=== PATIENT | male | born 1975 | race American Indian/Alaskan Native ===

== ENCOUNTER 2016-12-27 18:46 | Emergency (ER) | payer OTHER ==
[2016-12-27 20:27] VITALS: BP 126/80
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
[2016-12-27] MEDS ORDERED: Acetaminophen/HYDROcodone 325-10 MG Tab ONE (22:35)
== END 2016-12-27 22:43 | disposition home or self-care (01) ==
LOC: DL.ED 18:46
DX: S29.019A Strain of muscle and tendon of unspecified wall of thorax, initial encounter (principal); I10 Essential (primary) hypertension; F17.210 Nicotine dependence, cigarettes, uncomplicated; G89.29 Other chronic pain; M54.9 Dorsalgia, unspecified; Z79.899 Other long term (current) drug therapy; Z91.011 Allergy to milk products; V89.9XXA Person injured in unspecified vehicle accident, initial encounter
CPT/HCPCS: 72125; 72128; 96372; 99283; A9270; J2360

== ENCOUNTER 2018-09-27 00:59 | Emergency (ER) | payer OTHER ==
[2018-09-27] MEDS ORDERED: Lidocaine 2% Viscous Solution 15 ML Cup PO ONE (02:08)
[2018-09-27] MEDS ORDERED: Acetaminophen/HYDROcodone 325-10 MG Tab PO ONE (02:09)
[2018-09-27 02:11] VITALS: BP 135/86
--- NOTE | 2018-09-27 02:17 | EDM.PDOC ---
ED HPI GENERAL MEDICAL PROBLEM - General Chief Complaint: ENT Problem Stated Complaint: TOOTH FILLING BROKE/NEEXT TO NERVE Time Seen by Provider: 09/27/18 02:10 Source of Information: Reports: Patient History Limitations: Reports: No Limitations - History of Present Illness INITIAL COMMENTS - FREE TEXT/NARRATIVE: This 43 yo male patient reports to the ED with right lower dental pain. The patient reports he had a filling that fell out and has been seen by the dentist , but today he started to have increased pain. The patient reports he is currently on Amoxicillin and has been taking Tylenol with no relief. The patient reports he is supposed to see the dentist again on 10/14/18 to fix his tooth. Onset: Today Duration: Constant, Getting Worse Location: Reports: Face Quality: Reports: Ache, Sharp Severity: Severe Improves with: Reports: None Worsens with: Reports: None Associated Symptoms: Reports: No Other Symptoms - Related Data Allergies Allergy/AdvReac Type Severity Reaction Status Date / Time milk Allergy Nausea and Verified 12/27/16 20:52 Vomiting ceder Allergy Swelling Uncoded 12/27/16 20:52 Home Meds: Home Meds FLUoxetine [PROzac] 10 mg PO DAILY 06/22/14 [History] Magnesium Oxide 250 mg PO BID 06/22/14 [History] Metoprolol Succinate [Toprol Xl] 100 mg PO BID 06/22/14 [History] Mycophenolate Mofetil [Cellcept] 500 mg PO BID 06/22/14 [History] Tacrolimus 1 mg PO BID 06/22/14 [History] predniSONE 5 mg PO DAILY 06/22/14 [History] Lisinopril 10 mg PO DAILY 02/28/15 [History] Past Medical History Cardiovascular History: Reports: Arrhythmia, Hypertension Other Cardiovascular History: enlarged heart Other Genitourinary History: kidney transplant Musculoskeletal History: Reports: Back Pain, Chronic Immunologic History: Reports: Solid Organ Transplant Social & Family History - Family History Family Medical History: Noncontributory - Tobacco Use Smoking Status *Q: Current Every Day Smoker Years of Tobacco use: 30 Packs/Tins Daily: 0.5 Used Tobacco, but Quit: No Second Hand Smoke Exposure: No - Caffeine Use Caffeine Use: Reports: None - Recreational Drug Use Recreational Drug Use: No ED ROS ENT - Review of Systems Review Of Systems: ROS reveals no pertinent complaints other than HPI. ED EXAM, ENT - Physical Exam Exam: See Below Exam Limited By: No Limitations General Appearance: Alert, WD/WN, No Apparent Distress Ears: Normal External Exam, Normal Canal, Hearing Grossly Normal, Normal TMs Nose: Normal Inspection, Normal Mucousa, No Blood Mouth/Throat: Dental Pain (right lower molar) Head: Atraumatic, Normocephalic Neck: Normal Inspection, Supple, Non-Tender, Full Range of Motion Respiratory/Chest: No Respiratory Distress, Lungs Clear, Normal Breath Sounds, No Accessory Muscle Use, Chest Non-Tender Cardiovascular: Normal Peripheral Pulses, Regular Rate, Rhythm, No Edema, No Gallop, No JVD, No Murmur, No Rub GI/Abdominal: Normal Bowel Sounds, Soft, Non-Tender, No Organomegaly, No Distention, No Abnormal Bruit, No Mass (Male) Exam: Deferred Rectal (Males) Exam: Deferred Back: Normal Inspection, Full Range of Motion Extremities: Normal Inspection, Normal Range of Motion, Non-Tender, No Pedal Edema, Normal Capillary Refill Neurological: Alert, Oriented, CN II-XII Intact, Normal Cognition, Normal Gait, Normal Reflexes, No Motor/Sensory Deficits Psychiatric: Normal Affect, Normal Mood Skin: Warm, Dry, Intact, Normal Color, No Rash Lymphatic: No Adenopathy Course - Vital Signs Last Recorded V/S: Last Vital Signs Temp 36.4 C 09/27/18 01:30 Pulse 58 L 09/27/18 01:30 Resp 16 09/27/18 01:30 BP 135/86 09/27/18 01:30 Pulse Ox 99 09/27/18 01:30 - Orders/Labs/Meds Meds: Medications Discontinued Medications Generic Name Dose Route Start Last Admin Trade Name Rodolfoq PRN Reason Stop Dose Admin Hydrocodone Bitart/Acetaminophen 1 tab 09/27/18 02:09 Thayer 325-10 Mg PO 09/27/18 02:10 ONETIME ONE Lidocaine HCl 15 ml 09/27/18 02:08 Xylocaine 2% Viscous PO 09/27/18 02:09 ONETIME ONE Departure - Departure Time of Disposition: 02:16 Disposition: Home, Self-Care 01 Condition: Fair Clinical Impression: Dental trauma Qualifiers: Encounter type: initial encounter Qualified Code(s): S09.93XA - Unspecified injury of face, initial encounter - Discharge Information *PRESCRIPTION DRUG MONITORING PROGRAM REVIEWED*: Not Applicable *COPY OF PRESCRIPTION DRUG MONITORING REPORT IN PATIENT TAMIKO: Not Applicable Instructions: Tooth Injuries, Meqi-[id number] Care Plan Goals: The patient was advised of the examination results during the visit. The patient was given an oral dose of Thayer while in the ED and a dose of viscous lidocaine while in the ED. The patient was discharged with a script for Viscous Lidocaine 2% #100 mL to use 10 mL on a cottonball applied to the area of pain as needed and Thayer (5/325) #4 to take 1 by mouth every 6 hours as needed for pain. If the patient has any additional symptoms or concerns, the patient should either return to the emergency department, visit his primary care facility or see his dentist.
== END 2018-09-27 02:29 | disposition home or self-care (01) ==
LOC: DL.ED 00:59
DX: S09.93XA Unspecified injury of face, initial encounter (principal); I10 Essential (primary) hypertension; F17.210 Nicotine dependence, cigarettes, uncomplicated; Z91.011 Allergy to milk products; Z91.048 Other nonmedicinal substance allergy status; Z79.899 Other long term (current) drug therapy; Z94.0 Kidney transplant status; W19.XXXA Unspecified fall, initial encounter
CPT/HCPCS: 99282; A9270

== ENCOUNTER 2019-08-18 12:19 | Emergency (ER) | payer OTHER, MEDICARE ==
[2019-08-18] MEDS ORDERED: Promethazine 25 MG Tab PO ONE (12:20)
[2019-08-18] MEDS ORDERED: Ondansetron 4 MG Tab.DIS PO ONE (12:20)
[2019-08-18] MEDS ORDERED: Sodium Chloride 0.9% 10 ML Syringe FLUSH PRN (12:31)
[2019-08-18] MEDS ORDERED: Ondansetron 4 MG/2 ML SDV IV ONE ×2 (12:32→13:13)
[2019-08-18] MEDS ORDERED: HYDROmorphone 1 MG/ML Syringe IVPUSH ONE ×2 (12:32→13:25)
[2019-08-18] MEDS ORDERED: Sodium Chloride 0.9% 1,000 ML IV ONE (12:32)
--- NOTE | 2019-08-18 12:39 | EDM.PDOC ---
"ED HPI GENERAL MEDICAL PROBLEM - General Chief Complaint: Gastrointestinal Problem Stated Complaint: VOMITTING,SICK Time Seen by Provider: 08/18/19 12:33 Source of Information: Reports: Patient, Old Records, RN, RN Notes Reviewed History Limitations: Reports: No Limitations - History of Present Illness INITIAL COMMENTS - FREE TEXT/NARRATIVE: Pt presents to ER from home by POV with c/o onset of nausea, vomiting, diarrhea , and upper abdominal pain at 0400HRS this morning. Pt admits to feverish sensation, but has not measured his temperature. He denies bloody or coffee ground emesis. Denies bloody, black, dark, or melanotic stools. Pt reports Hx of CKD s/p transplant. He states that he has been making urine normally. Pt describes the abdominal pain as epigastric. He rates the pain 8-10/10. Nothing alleviates or aggravates his pain. Pt states this has happened in the past and he finds that soaking in a hot bath or hot shower helps relieve the symptoms. Onset: Today, Gradual Onset Date: 08/18/19 Onset Time: 04:00 Duration: Constant, Getting Worse Location: Reports: Abdomen Quality: Reports: Ache Severity: Severe Improves with: Reports: None Worsens with: Reports: None Associated Symptoms: Reports: No Other Symptoms Upper Abdominal Pain Score (Numeric/FACES): 10 - Related Data Allergies Allergy/AdvReac Type Severity Reaction Status Date / Time losartan [From Cozaar] Allergy Cannot Verified 01/04/19 07:55 Remember milk Allergy Nausea and Verified 01/04/19 07:55 Vomiting ceder Allergy Swelling Uncoded 01/04/19 07:55 Home Meds: Home Meds Metoprolol Succinate [Toprol Xl] 100 mg PO BID 06/22/14 [History] Tacrolimus 1 - 1.5 mg PO BID 06/22/14 [History] mycophenolate mofetiL [Cellcept] 750 mg PO BID 06/22/14 [History] predniSONE 5 mg PO DAILY 06/22/14 [History] Acetaminophen 650 mg PO ASDIRECTED PRN 01/01/19 [History] Aspirin [Halfprin] 81 mg PO DAILY 01/01/19 [History] Calcium Carb, Citrate/Vit D3 [Calcium + D3 ER Tablet] 1 tab PO DAILY 01/01/19 [ History] Isosorbide Mononitrate [Imdur] 30 mg PO DAILY 01/01/19 [History] Magnesium 800 mg PO BID 01/01/19 [History] Multivitamin [Multivitamins] 1 tab PO DAILY 01/01/19 [History] Omeprazole 20 mg PO DAILY 01/01/19 [History] amLODIPine Besylate [Amlodipine Besylate] 5 mg PO DAILY 01/01/19 [History] Past Medical History HEENT History: Reports: Impaired Vision Cardiovascular History: Reports: Arrhythmia, Hypertension, Other (See Below) Other Cardiovascular History: enlarged heart Respiratory History: Reports: None Gastrointestinal History: Reports: GERD Genitourinary History: Reports: Other (See Below) Other Genitourinary History: kidney transplant Musculoskeletal History: Reports: Back Pain, Chronic, Gout Neurological History: Reports: None Psychiatric History: Reports: None Endocrine/Metabolic History: Reports: Obesity/BMI 30+, Osteopenia Hematologic History: Reports: None Immunologic History: Reports: None, Solid Organ Transplant Oncologic (Cancer) History: Reports: Bladder, Renal Dermatologic History: Reports: None - Infectious Disease History Infectious Disease History: Reports: None - Past Surgical History Female Surgical History: Social & Family History - Family History Family Medical History: Noncontributory - Tobacco Use Smoking Status *Q: Current Every Day Smoker Tobacco Use Within Last Twelve Months: Cigarettes Years of Tobacco use: 30 Packs/Tins Daily: 1 - Caffeine Use Caffeine Use: Reports: Soda Other Caffeine Use: SODA POP DAILY - Alcohol Use Alcohol Use History: No - Recreational Drug Use Recreational Drug Use: Yes Drug Use in Last 12 Months: Yes Recreational Drug Type: Reports: Marijuana/Hashish Recreational Drug Use Frequency: Weekly - Living Situation & Occupation Living situation: Reports: with Family Occupation: Employed ED ROS GENERAL - Review of Systems Review Of Systems: Comprehensive ROS is negative, except as noted in HPI. ED EXAM, GI/ABD - Physical Exam Exam: See Below Exam Limited By: No Limitations General Appearance: Alert, No Apparent Distress, Active Emesis, Other (Acutely ill but non-toxic appearing) Eyes: Bilateral: Normal Appearance (No scleral icterus) Nose: Normal Inspection, Normal Mucosa, No Blood Throat/Mouth: Normal Inspection, Normal Lips, Normal Oropharynx, Normal Voice, No Airway Compromise Head: Atraumatic, Normocephalic Neck: Normal Inspection, Supple, Non-Tender, Full Range of Motion Respiratory/Chest: No Respiratory Distress, Lungs Clear, Normal Breath Sounds, No Accessory Muscle Use, Chest Non-Tender Cardiovascular: Regular Rate, Rhythm, No Edema, Bradycardia GI/Abdominal Exam: Normal Bowel Sounds, Soft, No Distention, Tender (at epigastric and RUQ regions). No: Guarding, Rigid, Rebound (Male) Exam: Deferred Rectal (Males) Exam: Deferred Back Exam: Normal Inspection. No: CVA Tenderness (L), CVA Tenderness (R) Extremities: Normal Inspection, Normal Range of Motion, Non-Tender, No Pedal Edema, Normal Capillary Refill Neurological: Alert, Oriented, CN II-XII Intact, Normal Cognition, No Motor/ Sensory Deficits Psychiatric: Normal Affect, Normal Mood Skin Exam: Warm, Intact, No Rash, Diaphoretic Course - Vital Signs Last Recorded V/S: Last Vital Signs Temp 95 F L 08/18/19 12:25 Pulse 49 L 08/18/19 13:02 Resp 18 08/18/19 13:02 BP 129/78 08/18/19 13:02 Pulse Ox 100 08/18/19 13:02 - Orders/Labs/Meds Orders: Active Orders 24 hr Category Date Time Status Peripheral IV Care [RC] . DIRECTED Care 08/18/19 12:31 Active Abdomen Pelvis wo Cont [CT] Stat Exams 08/18/19 13:14 Taken CULTURE BLOOD [BC] Stat Lab 08/18/19 12:33 Received CULTURE BLOOD [BC] Stat Lab 08/18/19 12:57 Results CULTURE STOOL [] Stat Lab 08/18/19 12:31 Ordered CULTURE STREP A CONFIRMATION [] Stat Lab 08/18/19 12:41 Results STREP SCRN A RAPID W CULT CONF [] Stat Lab 08/18/19 12:41 Results Sodium Chloride 0.9% [Saline Flush] Med 08/18/19 12:31 Active 10 ml FLUSH ASDIRECTED PRN Blood Culture x2 Reflex Set [OM.PC] Stat Oth 08/18/19 12:30 Ordered Peripheral IV Insertion Adult [OM.PC] Stat Oth 08/18/19 12:30 Ordered Medication Orders Sodium Chloride (Saline Flush) 10 ml FLUSH ASDIRECTED PRN PRN Reason: Keep Vein Open Last Admin: 08/18/19 12:38 Dose: 10 ml Labs: Laboratory Tests 08/18/19 08/18/1919 Range/Units 12:33 12:33 12:57 WBC 21.6 H (5.0-10.0) 10^3/uL RBC 5.47 (4.6-6.2) 10^6/uL Hgb 16.5 D (14.0-18.0) g/dL Hct 46.8 (40.0-54.0) % MCV 85.6 (80-100) fL MCH 30.2 (27.0-34.0) pg MCHC 35.3 H (33.0-35.0) g/dL Plt Count 305 (150-450) 10^3/uL Neut % (Auto) 84.3 H (42.2-75.2) % Lymph % (Auto) 9.2 L (20.5-50.1) % Door % (Auto) 5.6 (2-8) % Eos % (Auto) 0.7 L (1.0-3.0) % Baso % (Auto) 0.2 (0.0-1.0) % Sodium 137 (135-145) mmol/L Potassium 3.6 (3.6-5.0) mmol/L Chloride 104 (101-111) mmol/L Carbon Dioxide 18.0 L (21.0-31.0) mmol/L Anion Gap 18.6 BUN 25 H (7-18) mg/dL Creatinine 1.5 H (0.6-1.3) mg/dL Est Cr Clr Drug Dosing 69.54 mL/min Estimated GFR (MDRD) 50 BUN/Creatinine Ratio 16.66 Glucose 154 H (74-105) mg/dL Lactic Acid 2.0 (0.5-2.2) mmol/L Calcium 9.3 (8.4-10.2) mg/dl Total Bilirubin 1.0 (0.2-1.0) mg/dL AST 21 (10-42) IU/L ALT 18 (10-60) IU/L Alkaline Phosphatase 68 (42-121) IU/L Total Protein 8.8 H (6.7-8.2) g/dl Albumin 4.5 (3.2-5.5) g/dl Globulin 4.3 Albumin/Globulin Ratio 1.05 Amylase 105 H (28-100) U/L Lipase 41 (22-51) U/L Urine Color (YELLOW) Urine Appearance (CLEAR) Urine pH (5.0-9.0) Ur Specific [place] (1.005-1.030) Urine Protein (NEGATIVE) Urine Glucose (UA) (NEGATIVE) Urine Ketones (NEGATIVE) Urine Occult Blood (NEGATIVE) Urine Nitrite (NEGATIVE) Urine Bilirubin (NEGATIVE) Urine Urobilinogen (0.2-1.0) mg/dL Ur Leukocyte Esterase (NEGATIVE) Urine RBC /HPF Urine WBC (0-5/HPF) /HPF Ur Epithelial Cells (NOT SEEN) /HPF Amorphous Sediment (NOT SEEN) /HPF Urine Bacteria (0-FEW/HPF) /HPF Urine Mucus (NOT SEEN) /LPF Urine Opiates Screen (NEGATIVE) Ur Oxycodone Screen (NEGATIVE) Urine Methadone Screen (NEGATIVE) Ur Barbiturates Screen (NEGATIVE) U Tricyclic Antidepress (NEGATIVE) Ur Phencyclidine Scrn (NEGATIVE) Ur Amphetamine Screen (NEGATIVE) U Methamphetamines Scrn (NEGATIVE) Urine MDMA Screen (NEGATIVE) U Benzodiazepines Scrn (NEGATIVE) Urine Cocaine Screen (NEGATIVE) U Marijuana (THC) Screen (NEGATIVE) 08/18/19 08/18/19 Range/Units 14:17 14:17 WBC (5.0-10.0) 10^3/uL RBC (4.6-6.2) 10^6/uL Hgb (14.0-18.0) g/dL Hct (40.0-54.0) % MCV (80-100) fL MCH (27.0-34.0) pg MCHC (33.0-35.0) g/dL Plt Count (150-450) 10^3/uL Neut % (Auto) (42.2-75.2) % Lymph % (Auto) (20.5-50.1) % Door % (Auto) (2-8) % Eos % (Auto) (1.0-3.0) % Baso % (Auto) (0.0-1.0) % Sodium (135-145) mmol/L Potassium (3.6-5.0) mmol/L Chloride (101-111) mmol/L Carbon Dioxide (21.0-31.0) mmol/L Anion Gap BUN (7-18) mg/dL Creatinine (0.6-1.3) mg/dL Est Cr Clr Drug Dosing mL/min Estimated GFR (MDRD) BUN/Creatinine Ratio Glucose (74-105) mg/dL Lactic Acid (0.5-2.2) mmol/L Calcium (8.4-10.2) mg/dl Total Bilirubin (0.2-1.0) mg/dL AST (10-42) IU/L ALT (10-60) IU/L Alkaline Phosphatase (42-121) IU/L Total Protein (6.7-8.2) g/dl Albumin (3.2-5.5) g/dl Globulin Albumin/Globulin Ratio Amylase (28-100) U/L Lipase (22-51) U/L Urine Color Yellow (YELLOW) Urine Appearance Slightly cloudy (CLEAR) Urine pH 7.5 (5.0-9.0) Ur Specific [place] 1.020 (1.005-1.030) Urine Protein 100 H (NEGATIVE) Urine Glucose (UA) Negative (NEGATIVE) Urine Ketones 15 H (NEGATIVE) Urine Occult Blood Negative (NEGATIVE) Urine Nitrite Negative (NEGATIVE) Urine Bilirubin Negative (NEGATIVE) Urine Urobilinogen 0.2 (0.2-1.0) mg/dL Ur Leukocyte Esterase Negative (NEGATIVE) Urine RBC 0-5 /HPF Urine WBC 0-5 (0-5/HPF) /HPF Ur Epithelial Cells Rare (NOT SEEN) /HPF Amorphous Sediment Rare (NOT SEEN) /HPF Urine Bacteria Rare (0-FEW/HPF) /HPF Urine Mucus Moderate H (NOT SEEN) /LPF Urine Opiates Screen Negative (NEGATIVE) Ur Oxycodone Screen Negative (NEGATIVE) Urine Methadone Screen Negative (NEGATIVE) Ur Barbiturates Screen Negative (NEGATIVE) U Tricyclic Antidepress Negative (NEGATIVE) Ur Phencyclidine Scrn Negative (NEGATIVE) Ur Amphetamine Screen Negative (NEGATIVE) U Methamphetamines Scrn Negative (NEGATIVE) Urine MDMA Screen Negative (NEGATIVE) U Benzodiazepines Scrn Negative (NEGATIVE) Urine Cocaine Screen Negative (NEGATIVE) U Marijuana (THC) Screen Positive H (NEGATIVE) Rapid Strep: negative Influenza A/B: negative Meds: Medications Generic Name Dose Route Start Last Admin Trade Name Freq PRN Reason Stop Dose Admin Sodium Chloride 10 ml 08/18/19 12:31 08/18/19 12:38 Saline Flush FLUSH 10 ml ASDIRECTED PRN Administration Keep Vein Open Discontinued Medications Generic Name Dose Route Start Last Admin Trade Name Freq PRN Reason Stop Dose Admin Diphenhydramine HCl 25 mg 08/18/19 13:15 08/18/19 13:21 Benadryl IVPUSH 08/18/19 13:16 25 mg ONETIME ONE Administration Hydromorphone HCl 1 mg 08/18/19 12:32 08/18/19 12:37 Dilaudid IVPUSH 08/18/19 12:33 1 mg ONETIME ONE Administration Hydromorphone HCl 1 mg 08/18/19 13:25 08/18/19 13:31 Dilaudid IVPUSH 08/18/19 13:26 1 mg ONETIME ONE Administration Sodium Chloride 1,000 mls @ 999 mls/hr 08/18/19 12:32 08/18/19 12:37 Normal Saline IV 08/18/19 13:32 999 mls/hr .BOLUS ONE Administration Ondansetron HCl 4 mg 08/18/19 12:32 08/18/19 12:37 Zofran IV 08/18/19 12:33 4 mg ONETIME ONE Administration Ondansetron HCl 4 mg 08/18/19 13:13 08/18/19 13:21 Zofran IV 08/18/19 13:14 4 mg ONETIME ONE Administration Promethazine HCl 50 mg 08/18/19 14:36 08/18/19 14:43 Phenergan IM 08/18/19 14:37 50 mg ONETIME ONE Administration - Radiology Interpretation Free Text/Narrative:: [facility] Final Radiology Report Call: [phone] assistance Online chat: [email or web address] Name: JAMES ACOSTA Age: 44Years M Date: 08/18/2019 SSN: -- : [id number] Study: CT ABDOMEN/PELVIS WO Requesting Physician: TIKA PASCUAL Images: [id number] Addl Studies: Provided Clinical History: Contrast: Without Contrast Medium: Contrast Amount: Contrast Method: Page 1 of 2 PROCEDURE INFORMATION: Exam: CT Abdomen And Pelvis Without Contrast Exam date and time: 08/18/2019 1:48 PM Age: 44 years old Clinical indication: Other: Upper abd pain wbc 26,000-[id number] kidney transplant TECHNIQUE: Imaging protocol: Computed tomography of the abdomen and pelvis without contrast. Radiation optimization: All CT scans at this facility use at least one of these dose optimization techniques: automated exposure control; mA and/or kV adjustment per patient size (includes targeted exams where dose is matched to clinical indication); or iterative reconstruction. COMPARISON: CT Chest Abdomen Pelvis wo Cont 12/10/2016 1:27 PM FINDINGS: Liver: The liver is normal. Gallbladder and bile ducts: The gallbladder is distended. Pancreas: The pancreas is normal. Spleen: The spleen is normal. Adrenals: The adrenal glands are normal. Kidneys and ureters: Status post right nephrectomy. Left kidney is atrophic. Transplanted kidney is within the right pelvis without obstructive uropathy. Stomach and bowel: The stomach is normal. The duodenum is unremarkable. Mild diverticulosis is present in the distal colon. Appendix: A normal appendix is identified. Intraperitoneal space: There is no evidence of free intraperitoneal or pelvic fluid. Vasculature: The aorta is normal. JENY ACOSTAY | Final Radiology Report CONFIDENTIALITY STATEMENT This report is intended only for use by the referring physician, and only in accordance with law. If you received this in error, call [phone]. Page 2 of 2 Lymph nodes: There are multiple nonspecific nonpathologic but prominent lymph nodes in the mesentery. There are no mesenteric lymph nodes of pathologic dimensions. There is no evidence of lymphadenopathy. Bladder: The bladder is normal. Reproductive: The prostate demonstrates mild nonspecific enlargement. The seminal vesicles are normal. Bones/joints: The lumbar spine demonstrates mild degenerative changes at multiple levels. Soft tissues: There are no soft tissue masses or fluid collections. IMPRESSION: 1. Transplanted kidney is within the right pelvis without obstructive uropathy. 2. There are multiple nonspecific nonpathologic but prominent lymph nodes in the mesentery. There are no mesenteric lymph nodes of pathologic dimensions. 3. Mild diverticulosis is present in the distal colon. Thank you for allowing us to participate in the care of your patient. Dictated and Authenticated by: Anthony Thornton DO 08/18/2019 3:09 PM Central Time ([place] & [place]) - Re-Assessments/Exams Free Text/Narrative Re-Assessment/Exam: 08/18/19 15:36 No source of infection by exam or diagnostic results. Elevated WBC may be related to cannabinoid hyperemesis syndrome. Departure - Departure Time of Disposition: 15:37 Disposition: Home, Self-Care 01 Condition: Good Clinical Impression: Acute gastroenteritis - Discharge Information *PRESCRIPTION DRUG MONITORING PROGRAM REVIEWED*: No *COPY OF PRESCRIPTION DRUG MONITORING REPORT IN PATIENT TAMIKO: No Instructions: Viral Gastroenteritis, Adult, [id number], Cannabinoid Hyperemesis Syndrome Forms: ED Department Discharge Additional Instructions: Zofran 4mg Promethazine 25mg *Do not drive while under the influence of this medication. Clear liquid diet until nausea resolves, then advance to soft bland diet as tolerated. Abstain from marijuana use. Follow up in clinic in 2 to 3 days if not completely improved. Sepsis Event Note - Evaluation Sepsis Screening Result: No Definite Risk - Focused Exam Vital Signs: Vital Signs Temp Pulse Resp BP Pulse Ox 08/18/19 13:02 49 L 18 129/78 100 08/18/19 12:25 95 F L 55 L 22 H 120/96 H 100 Date Exam was Performed: 08/18/19 Time Exam was Performed: 15:32 - My Orders Last 24 Hours: My Active Orders 08/18/19 12:30 Blood Culture x2 Reflex Set [OM.PC] Stat Peripheral IV Insertion Adult [OM.PC] Stat 08/18/19 12:31 Peripheral IV Care [RC] . DIRECTED CULTURE STOOL [RM] Stat Sodium Chloride 0.9% [Saline Flush] 10 ml FLUSH ASDIRECTED PRN 08/18/19 12:33 CULTURE BLOOD [BC] Stat 08/18/19 12:41 CULTURE STREP A CONFIRMATION [RM] Stat STREP SCRN A RAPID W CULT CONF [RM] Stat 08/18/19 12:57 CULTURE BLOOD [BC] Stat 08/18/19 13:14 Abdomen Pelvis wo Cont [CT] Stat - Assessment/Plan Last 24 Hours: My Active Orders 08/18/19 12:30 Blood Culture x2 Reflex Set [OM.PC] Stat Peripheral IV Insertion Adult [OM.PC] Stat 08/18/19 12:31 Peripheral IV Care [RC] . DIRECTED CULTURE STOOL [RM] Stat Sodium Chloride 0.9% [Saline Flush] 10 ml FLUSH ASDIRECTED PRN 08/18/19 12:33 CULTURE BLOOD [BC] Stat 08/18/19 12:41 CULTURE STREP A CONFIRMATION [RM] Stat STREP SCRN A RAPID W CULT CONF [RM] Stat 08/18/19 12:57 CULTURE BLOOD [BC] Stat 08/18/19 13:14 Abdomen Pelvis wo Cont [CT] Stat"
[2019-08-18 13:02] VITALS: BP 129/78; PULSE 49
[2019-08-18 13:10] LABS: ANION GAP 18.6
[2019-08-18] MEDS ORDERED: diphenhydrAMINE 50 MG/ML SDV IVPUSH ONE (13:15)
[2019-08-18] MEDS ORDERED: Promethazine 25 MG/ML SDV IM ONE (14:36)
[2019-08-18] MEDS ORDERED: Ondansetron 4 MG Tab.DIS ONE (15:37)
[2019-08-18] MEDS ORDERED: Promethazine 25 MG Tab ONE (15:37)
[2019-08-18] MEDS ORDERED: Haloperidol Lactate 5 MG/ML SDV IM ONE (15:42)
== END 2019-08-18 15:55 | disposition home or self-care (01) ==
LOC: DL.ED 12:19
DX: K52.9 Noninfective gastroenteritis and colitis, unspecified (principal); F17.210 Nicotine dependence, cigarettes, uncomplicated; I10 Essential (primary) hypertension; K21.9 Gastro-esophageal reflux disease without esophagitis; E66.9 Obesity, unspecified; Z79.82 Long term (current) use of aspirin; Z79.899 Other long term (current) drug therapy; Z91.011 Allergy to milk products; Z88.8 Allergy status to other drugs, medicaments and biological substances
CPT/HCPCS: 36415; 74176; 80053; 80305; 81001; 82150; 83605; 83690; 85025; 87040; 87081; 87430; 87804; 96361; 96372; 96374; 96375; 96376; 99283; 99284; A9270; J1170; J1200; J1630; J2405; J2550; J7030

== ENCOUNTER 2020-04-18 12:42 | Emergency (ER) | payer OTHER ==
[2020-04-18] MEDS ORDERED: Sodium Chloride 0.9% 1,000 ML IV ONE (12:53)
[2020-04-18] MEDS ORDERED: Ondansetron 4 MG/2 ML SDV IVPUSH ONE (12:53)
--- NOTE | 2020-04-18 13:01 | EDM.PDOC ---
ED HPI GENERAL MEDICAL PROBLEM - General Stated Complaint: AMBULANCE Time Seen by Provider: 04/18/20 12:50 Source of Information: Reports: Patient History Limitations: Reports: No Limitations - History of Present Illness INITIAL COMMENTS - FREE TEXT/NARRATIVE: This 44 yo male patient reports to the ED with mid lower abdominal pain. EMS reports his abdominal pain started this morning and has been getting worse since time of onset. The patient has had similar symptoms in the past. Middle Abdomen Pain Score (Numeric/FACES): 9 - Related Data Allergies Allergy/AdvReac Type Severity Reaction Status Date / Time losartan [From Cozaar] Allergy Cannot Verified 01/04/19 07:55 Remember milk Allergy Nausea and Verified 01/04/19 07:55 Vomiting ceder Allergy Swelling Uncoded 01/04/19 07:55 Home Meds: Home Meds Metoprolol Succinate [Toprol Xl] 100 mg PO BID 06/22/14 [History] Tacrolimus 1 - 1.5 mg PO BID 06/22/14 [History] mycophenolate mofetiL [Cellcept] 750 mg PO BID 06/22/14 [History] predniSONE 5 mg PO DAILY 06/22/14 [History] Acetaminophen 650 mg PO ASDIRECTED PRN 01/01/19 [History] Aspirin [Halfprin] 81 mg PO DAILY 01/01/19 [History] Calcium Carb, Citrate/Vit D3 [Calcium + D3 ER Tablet] 1 tab PO DAILY 01/01/19 [History] Isosorbide Mononitrate [Imdur] 30 mg PO DAILY 01/01/19 [History] Magnesium 800 mg PO BID 01/01/19 [History] Multivitamin [Multivitamins] 1 tab PO DAILY 01/01/19 [History] Omeprazole 20 mg PO DAILY 01/01/19 [History] amLODIPine Besylate [Amlodipine Besylate] 5 mg PO DAILY 01/01/19 [History] Albuterol [Proair HFA] 1 puff IH Q6H PRN 04/18/20 [History] Sodium Bicarbonate 1,300 mg PO BID 04/18/20 [History] atorvaSTATin Calcium [Atorvastatin Calcium] 10 mg PO BEDTIME 04/18/20 [History] Past Medical History HEENT History: Reports: Impaired Vision Cardiovascular History: Reports: Arrhythmia, Hypertension, Other (See Below) Other Cardiovascular History: enlarged heart Respiratory History: Reports: None Gastrointestinal History: Reports: GERD Genitourinary History: Reports: Other (See Below) Other Genitourinary History: kidney transplant Musculoskeletal History: Reports: Back Pain, Chronic, Gout Neurological History: Reports: None Psychiatric History: Reports: None Endocrine/Metabolic History: Reports: Obesity/BMI 30+, Osteopenia Hematologic History: Reports: None Immunologic History: Reports: None, Solid Organ Transplant Oncologic (Cancer) History: Reports: Bladder, Renal Dermatologic History: Reports: None - Infectious Disease History Infectious Disease History: Reports: None - Past Surgical History Female Surgical History: Social & Family History - Family History Family Medical History: Noncontributory - Caffeine Use Caffeine Use: Reports: Soda Other Caffeine Use: SODA POP DAILY - Living Situation & Occupation Living situation: Reports: with Family Occupation: Employed ED ROS GENERAL - Review of Systems Review Of Systems: Comprehensive ROS is negative, except as noted in HPI. ED EXAM, GI/ABD - Physical Exam Exam: See Below Exam Limited By: No Limitations General Appearance: Alert, WD/WN, Moderate Distress Eyes: Bilateral: Normal Appearance, EOMI Ears: Normal External Exam, Normal Canal, Hearing Grossly Normal, Normal TMs Nose: Normal Inspection, Normal Mucosa, No Blood Throat/Mouth: Normal Inspection, Normal Lips, Normal Teeth, Normal Gums, Normal Oropharynx, Normal Voice, No Airway Compromise Head: Atraumatic, Normocephalic Neck: Normal Inspection, Supple, Non-Tender, Full Range of Motion Respiratory/Chest: No Respiratory Distress, Lungs Clear, Normal Breath Sounds, No Accessory Muscle Use, Chest Non-Tender Cardiovascular: Normal Peripheral Pulses, Regular Rate, Rhythm, No Edema, No Gallop, No JVD, No Murmur, No Rub GI/Abdominal Exam: Normal Bowel Sounds, No Organomegaly, No Distention, No Abnormal Bruit, No Mass, Pelvis Stable, Tender (diffuse) (Male) Exam: Deferred Rectal (Males) Exam: Deferred Back Exam: Normal Inspection, Full Range of Motion, NT Extremities: Normal Inspection, Normal Range of Motion, Non-Tender, Normal Capillary Refill, No Pedal Edema Neurological: Alert, Oriented, CN II-XII Intact, Normal Cognition, Normal Gait, Normal Reflexes, No Motor/Sensory Deficits Psychiatric: Normal Affect, Normal Mood Skin Exam: Warm, Dry, Intact, Normal Color, No Rash Lymphatic: No Adenopathy Course - Vital Signs Last Recorded V/S: Last Vital Signs Temp 36.3 C 04/18/20 13:05 Pulse 42 L 04/18/20 13:05 Resp 9 L 04/18/20 13:05 BP 156/85 H 04/18/20 13:05 Pulse Ox 100 04/18/20 13:05 - Orders/Labs/Meds Orders: Active Orders 24 hr Category Date Time Status EKG Documentation Completion [RC] STAT Care 04/18/20 13:34 Active CULTURE BLOOD [BC] Stat Lab 04/18/20 12:47 Results CULTURE BLOOD [BC] Stat Lab 04/18/20 13:05 Received REFLEX LACTIC ACID YES OR NO [CHEM] Routine Lab 04/18/20 13:47 Received Blood Culture x2 Reflex Set [OM.PC] Stat Oth 04/18/20 13:23 Ordered Labs: Laboratory Tests 04/18/20 04/18/20 04/18/20 Range/Units 13:05 13:05 13:05 WBC 20.5 H (5.0-10.0) 10^3/uL RBC 5.03 (4.6-6.2) 10^6/uL Hgb 15.0 D (14.0-18.0) g/dL Hct 42.7 (40.0-54.0) % MCV 84.9 (80-100) fL MCH 29.8 (27.0-34.0) pg MCHC 35.1 H (33.0-35.0) g/dL Plt Count 285 (150-450) 10^3/uL Neut % (Auto) 76.8 H (42.2-75.2) % Lymph % (Auto) 15.0 L (20.5-50.1) % Rankin % (Auto) 7.0 (2-8) % Eos % (Auto) 0.8 L (1.0-3.0) % Baso % (Auto) 0.4 (0.0-1.0) % Sodium 143 (136-145) mmol/L Potassium 3.6 (3.5-5.1) mmol/L Chloride 106 (98-107) mmol/L Carbon Dioxide 21 (21-32) mmol/L Anion Gap 19.6 H (7-13) mEq/L BUN 22 H (7-18) mg/dL Creatinine 2.01 H (0.70-1.30) mg/dL Est Cr Clr Drug Dosing 50.40 mL/min Estimated GFR (MDRD) 36 BUN/Creatinine Ratio 10.9 (No establ ref range) Glucose 169 H (74-99) mg/dL Lactic Acid (0.4-2.0) mmol/L Calcium 9.3 (8.5-10.1) mg/dL Magnesium 1.9 (1.8-2.4) mg/dL Total Bilirubin 0.6 (0.2-1.0) mg/dL AST 14 L (15-37) U/L ALT 22 (16-63) U/L Alkaline Phosphatase 83 (46-116) U/L Ammonia 11 (11-32) umol/L Troponin I (0.000-0.056) ng/mL Total Protein 8.4 H (6.4-8.2) g/dL Albumin 4.1 (3.4-5.0) g/dL Globulin 4.3 Albumin/Globulin Ratio 1.0 Amylase 63 (25-115) U/L Lipase 123 (73-393) U/L Urine Color (YELLOW) Urine Appearance (CLEAR) Urine pH (5.0-9.0) Ur Specific [place] (1.005-1.030) Urine Protein (NEGATIVE) Urine Glucose (UA) (NEGATIVE) Urine Ketones (NEGATIVE) Urine Occult Blood (NEGATIVE) Urine Nitrite (NEGATIVE) Urine Bilirubin (NEGATIVE) Urine Urobilinogen (0.2-1.0) mg/dL Ur Leukocyte Esterase (NEGATIVE) Urine RBC /HPF Urine WBC (0-5/HPF) /HPF Ur Epithelial Cells (NOT SEEN) /HPF Amorphous Sediment (NOT SEEN) /HPF Urine Bacteria (0-FEW/HPF) /HPF Urine Mucus (NOT SEEN) /LPF Salicylates (2.8-20(Therapeutic)) mg/dL Urine Opiates Screen (NEGATIVE) Ur Oxycodone Screen (NEGATIVE) Urine Methadone Screen (NEGATIVE) Acetaminophen 0 L (10-30 (Therapeutic)) ug/mL Ur Barbiturates Screen (NEGATIVE) U Tricyclic Antidepress (NEGATIVE) Ur Phencyclidine Scrn (NEGATIVE) Ur Amphetamine Screen (NEGATIVE) U Methamphetamines Scrn (NEGATIVE) Urine MDMA Screen (NEGATIVE) U Benzodiazepines Scrn (NEGATIVE) Urine Cocaine Screen (NEGATIVE) U Marijuana (THC) Screen (NEGATIVE) Ethyl Alcohol < 3 (0) mg/dL COVID-19 (NEFTALY) (NEGATIVE) 04/18/20 04/18/20 04/18/20 Range/Units 13:05 13:05 13:05 WBC (5.0-10.0) 10^3/uL RBC (4.6-6.2) 10^6/uL Hgb (14.0-18.0) g/dL Hct (40.0-54.0) % MCV (80-100) fL MCH (27.0-34.0) pg MCHC (33.0-35.0) g/dL Plt Count (150-450) 10^3/uL Neut % (Auto) (42.2-75.2) % Lymph % (Auto) (20.5-50.1) % Rankin % (Auto) (2-8) % Eos % (Auto) (1.0-3.0) % Baso % (Auto) (0.0-1.0) % Sodium (136-145) mmol/L Potassium (3.5-5.1) mmol/L Chloride (98-107) mmol/L Carbon Dioxide (21-32) mmol/L Anion Gap (7-13) mEq/L BUN (7-18) mg/dL Creatinine (0.70-1.30) mg/dL Est Cr Clr Drug Dosing mL/min Estimated GFR (MDRD) BUN/Creatinine Ratio (No establ ref range) Glucose (74-99) mg/dL Lactic Acid 2.5 H* (0.4-2.0) mmol/L Calcium (8.5-10.1) mg/dL Magnesium (1.8-2.4) mg/dL Total Bilirubin (0.2-1.0) mg/dL AST (15-37) U/L ALT (16-63) U/L Alkaline Phosphatase (46-116) U/L Ammonia (11-32) umol/L Troponin I (0.000-0.056) ng/mL Total Protein (6.4-8.2) g/dL Albumin (3.4-5.0) g/dL Globulin Albumin/Globulin Ratio Amylase (25-115) U/L Lipase (73-393) U/L Urine Color (YELLOW) Urine Appearance (CLEAR) Urine pH (5.0-9.0) Ur Specific [place] (1.005-1.030) Urine Protein (NEGATIVE) Urine Glucose (UA) (NEGATIVE) Urine Ketones (NEGATIVE) Urine Occult Blood (NEGATIVE) Urine Nitrite (NEGATIVE) Urine Bilirubin (NEGATIVE) Urine Urobilinogen (0.2-1.0) mg/dL Ur Leukocyte Esterase (NEGATIVE) Urine RBC /HPF Urine WBC (0-5/HPF) /HPF Ur Epithelial Cells (NOT SEEN) /HPF Amorphous Sediment (NOT SEEN) /HPF Urine Bacteria (0-FEW/HPF) /HPF Urine Mucus (NOT SEEN) /LPF Salicylates 7.1 (2.8-20(Therapeutic)) mg/dL Urine Opiates Screen (NEGATIVE) Ur Oxycodone Screen (NEGATIVE) Urine Methadone Screen (NEGATIVE) Acetaminophen (10-30 (Therapeutic)) ug/mL Ur Barbiturates Screen (NEGATIVE) U Tricyclic Antidepress (NEGATIVE) Ur Phencyclidine Scrn (NEGATIVE) Ur Amphetamine Screen (NEGATIVE) U Methamphetamines Scrn (NEGATIVE) Urine MDMA Screen (NEGATIVE) U Benzodiazepines Scrn (NEGATIVE) Urine Cocaine Screen (NEGATIVE) U Marijuana (THC) Screen (NEGATIVE) Ethyl Alcohol (0) mg/dL COVID-19 (NEFTALY) Negative (NEGATIVE) 04/18/20 04/18/20 04/18/20 Range/Units 13:05 14:56 14:56 WBC (5.0-10.0) 10^3/uL RBC (4.6-6.2) 10^6/uL Hgb (14.0-18.0) g/dL Hct (40.0-54.0) % MCV (80-100) fL MCH (27.0-34.0) pg MCHC (33.0-35.0) g/dL Plt Count (150-450) 10^3/uL Neut % (Auto) (42.2-75.2) % Lymph % (Auto) (20.5-50.1) % Rankin % (Auto) (2-8) % Eos % (Auto) (1.0-3.0) % Baso % (Auto) (0.0-1.0) % Sodium (136-145) mmol/L Potassium (3.5-5.1) mmol/L Chloride (98-107) mmol/L Carbon Dioxide (21-32) mmol/L Anion Gap (7-13) mEq/L BUN (7-18) mg/dL Creatinine (0.70-1.30) mg/dL Est Cr Clr Drug Dosing mL/min Estimated GFR (MDRD) BUN/Creatinine Ratio (No establ ref range) Glucose (74-99) mg/dL Lactic Acid (0.4-2.0) mmol/L Calcium (8.5-10.1) mg/dL Magnesium (1.8-2.4) mg/dL Total Bilirubin (0.2-1.0) mg/dL AST (15-37) U/L ALT (16-63) U/L Alkaline Phosphatase (46-116) U/L Ammonia (11-32) umol/L Troponin I < 0.017 (0.000-0.056) ng/mL Total Protein (6.4-8.2) g/dL Albumin (3.4-5.0) g/dL Globulin Albumin/Globulin Ratio Amylase (25-115) U/L Lipase (73-393) U/L Urine Color Yellow (YELLOW) Urine Appearance Clear (CLEAR) Urine pH 8.0 (5.0-9.0) Ur Specific [place] 1.020 (1.005-1.030) Urine Protein 100 H (NEGATIVE) Urine Glucose (UA) Negative (NEGATIVE) Urine Ketones 15 H (NEGATIVE) Urine Occult Blood Negative (NEGATIVE) Urine Nitrite Negative (NEGATIVE) Urine Bilirubin Negative (NEGATIVE) Urine Urobilinogen 0.2 (0.2-1.0) mg/dL Ur Leukocyte Esterase Negative (NEGATIVE) Urine RBC 5-10 H /HPF Urine WBC 0-5 (0-5/HPF) /HPF Ur Epithelial Cells Rare (NOT SEEN) /HPF Amorphous Sediment Occasional (NOT SEEN) /HPF Urine Bacteria Rare (0-FEW/HPF) /HPF Urine Mucus Rare (NOT SEEN) /LPF Salicylates (2.8-20(Therapeutic)) mg/dL Urine Opiates Screen Negative (NEGATIVE) Ur Oxycodone Screen Negative (NEGATIVE) Urine Methadone Screen Negative (NEGATIVE) Acetaminophen (10-30 (Therapeutic)) ug/mL Ur Barbiturates Screen Negative (NEGATIVE) U Tricyclic Antidepress Negative (NEGATIVE) Ur Phencyclidine Scrn Negative (NEGATIVE) Ur Amphetamine Screen Negative (NEGATIVE) U Methamphetamines Scrn Negative (NEGATIVE) Urine MDMA Screen Negative (NEGATIVE) U Benzodiazepines Scrn Negative (NEGATIVE) Urine Cocaine Screen Negative (NEGATIVE) U Marijuana (THC) Screen Positive H (NEGATIVE) Ethyl Alcohol (0) mg/dL COVID-19 (NEFTALY) (NEGATIVE) Meds: Medications Discontinued Medications Generic Name Dose Route Start Last Admin Trade Name Freq PRN Reason Stop Dose Admin Hydromorphone HCl 0.5 mg 04/18/20 13:50 04/18/20 13:59 Dilaudid IVPUSH 04/18/20 13:51 0.5 mg ONETIME ONE Administration Sodium Chloride 1,000 mls @ 999 mls/hr 04/18/20 12:53 04/18/20 13:18 Normal Saline IV 04/18/20 13:53 999 mls/hr .BOLUS ONE Administration Metoclopramide HCl 10 mg 04/18/20 13:45 04/18/20 13:59 Reglan IVPUSH 04/18/20 13:46 10 mg ONETIME ONE Administration Ondansetron HCl 4 mg 04/18/20 12:53 04/18/20 13:18 Zofran IVPUSH 04/18/20 12:54 4 mg ONETIME ONE Administration Promethazine HCl 25 mg 04/18/20 15:29 04/18/20 15:38 Phenergan IM 04/18/20 15:30 25 mg ONETIME ONE Administration Departure - Departure Time of Disposition: 16:01 Disposition: Home, Self-Care 01 Condition: Fair Clinical Impression: Acute gastroenteritis, Cannabinoid hyperemesis syndrome - Discharge Information *PRESCRIPTION DRUG MONITORING PROGRAM REVIEWED*: Not Applicable *COPY OF PRESCRIPTION DRUG MONITORING REPORT IN PATIENT TAMIKO: Not Applicable Instructions: Viral Gastroenteritis, Adult, [id number], Nausea and Vomiting, Adult, [id number] Forms: ED Department Discharge Care Plan Goals: The patient was advised of the examination and lab results during the visit. The patient was given IV fluids, IV Zofran, IV Reglan and IM Phenergan while in the ED. The patient was discharged with a script for Zofran (4 mg) #20 to take 1 by mouth every 6 hours as needed for nausea. The patient was encouraged to stick to a BRAT diet (bananas, rice, applesauce and toast) with small frequent sips of fluid. If the patient has any additional symptoms or concerns, the patient should either return to the emergency department or follow-up with his primary care facility. Sepsis Event Note (ED) - Focused Exam Vital Signs: Vital Signs Temp Pulse Resp BP Pulse Ox 04/18/20 13:05 36.3 C 42 L 9 L 156/85 H 100 - My Orders Last 24 Hours: My Active Orders 04/18/20 12:47 CULTURE BLOOD [BC] Stat 04/18/20 13:05 CULTURE BLOOD [BC] Stat 04/18/20 13:23 Blood Culture x2 Reflex Set [OM.PC] Stat 04/18/20 13:34 EKG Documentation Completion [RC] STAT 04/18/20 13:47 REFLEX LACTIC ACID YES OR NO [CHEM] Routine - Assessment/Plan Last 24 Hours: My Active Orders 04/18/20 12:47 CULTURE BLOOD [BC] Stat 04/18/20 13:05 CULTURE BLOOD [BC] Stat 04/18/20 13:23 Blood Culture x2 Reflex Set [OM.PC] Stat 04/18/20 13:34 EKG Documentation Completion [RC] STAT 04/18/20 13:47 REFLEX LACTIC ACID YES OR NO [CHEM] Routine
[2020-04-18 13:24] VITALS: BP 156/85; PULSE 42
[2020-04-18 13:39] LABS: ANION GAP 19.6 mEq/L (7-13); CHLORIDE,CL 106 mmol/L (98-107); SODIUM,NA 143 mmol/L (136-145)
[2020-04-18 13:40] LABS: ACETAMINOPHEN 0 ug/mL (10-30 (Therapeutic))
[2020-04-18] MEDS ORDERED: Metoclopramide 10 MG/2 ML SDV IVPUSH ONE (13:45)
[2020-04-18] MEDS ORDERED: HYDROmorphone 0.5 MG/0.5 ML Syringe IVPUSH ONE (13:50)
--- NOTE | 2020-04-18 14:37 | CT ---
EXAMINATION: Abdomen Pelvis wo Cont SEX: Male AGE: 44 years CLINICAL HISTORY: 44-year-old hypertensive 230 pound male with renal transplant, WBC greater than 20,000 and ABDOMINAL PAIN. "Diverticulosis distal colon and lymph nodes in the mesentery" reported CT 18 August 2019. Rule out appendicitis or other intraperitoneal abnormality. Scan technique: Volume acquisition of data emergency unenhanced CT scan of the abdomen and pelvis obtained with the patient lying supine on the Siemens multislice scanner [place], [place]. All data archived in the PACS system for storage, reformatting axial/sagittal/coronal planes and study. Interpretation: 1. 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 2. No sign of transplant mass lesion, nephrolithiasis or obstructive uropathy (pyelocaliectasis/ureterectasis). Vascular calcifications. No aortoiliac aneurysm. 3. Numerous diverticula sigmoid colon LLQ. No associated inflammatory "dirty" peritoneal fat, pericolonic inflammatory mass (abscess), mechanical bowel obstruction, ascites or free intraperitoneal air. 4. Gallbladder, unenhanced liver, stomach, spleen, pancreas and adrenal glands anatomically correct. 5. No pelvic or abdominal mass lesion. No mesenteric or retroperitoneal lymphadenopathy. Normal appendix RLQ. Terminal ileum unremarkable. 6. No ventral wall or inguinal hernias. 7. Normal cardiac silhouette. Lung bases clear. No pericardial or pleural effusions. CONCLUSION: Renal transplant, RLQ. Sigmoid diverticulosis. Normal appendix.
[2020-04-18] MEDS ORDERED: Promethazine 25 MG/ML SDV IM ONE (15:29)
== END 2020-04-18 16:08 | disposition home or self-care (01) ==
LOC: DL.ED 12:42
DX: K52.9 Noninfective gastroenteritis and colitis, unspecified (principal); R11.10 Vomiting, unspecified; F12.90 Cannabis use, unspecified, uncomplicated; I10 Essential (primary) hypertension; K21.9 Gastro-esophageal reflux disease without esophagitis; M10.9 Gout, unspecified; E66.9 Obesity, unspecified; Z68.30 Body mass index [BMI] 30.0-30.9, adult; Z88.8 Allergy status to other drugs, medicaments and biological substances; Z91.011 Allergy to milk products; Z79.899 Other long term (current) drug therapy; Z20.828 Contact with and (suspected) exposure to other viral communicable diseases; Z79.82 Long term (current) use of aspirin
CPT/HCPCS: 36415; 74176; 80053; 80305; 80307; 81001; 82140; 82150; 83605; 83690; 83735; 84484; 85025; 87040; 87635; 93005; 96361; 96372; 96374; 96375; 99284; J1170; J2405; J2550; J2765; J7030; U0002

== ENCOUNTER 2021-01-17 13:23 | Emergency (ER) | payer MEDICAID, OTHER ==
[2021-01-17] MEDS ORDERED: Sodium Chloride 0.9% 1,000 ML IV ONE ×2 (13:27→14:23)
[2021-01-17] MEDS ORDERED: Promethazine 25 MG/ML SDV IM ONE (13:28)
[2021-01-17 13:35] VITALS: BP 128/74; PULSE 50
[2021-01-17 14:06] LABS: ANION GAP 18.6 mEq/L (7-13)
[2021-01-17] MEDS ORDERED: Iopamidol 612 MG/ML 100 ML Bottle IVPUSH ONE (14:25)
[2021-01-17] MEDS ORDERED: HYDROmorphone 1 MG/ML Syringe IVPUSH ONE (14:30)
--- NOTE | 2021-01-17 14:36 | EDM.PDOC ---
ED HPI GENERAL MEDICAL PROBLEM - General Chief Complaint: Abdominal Pain Stated Complaint: vommiting,diarrhea,abdominal pain Time Seen by Provider: 01/17/21 14:15 Source of Information: Reports: Patient History Limitations: Reports: No Limitations - History of Present Illness INITIAL COMMENTS - FREE TEXT/NARRATIVE: This 45 yo male patient reports to the ED with diffuse abdominal pain and nausea/vomiting. The patient reports his symptoms started this morning and believes it has something to do with tomatoes. The patient has taken a "stomach" pill with no changes in symptoms. The patient has a history of hypertension and kidney transplant. The patient has been seen in this ED for similar symptoms. Onset: Today Duration: Constant, Getting Worse Location: Reports: Abdomen Quality: Reports: Ache, Stabbing Severity: Severe Improves with: Reports: None Worsens with: Reports: None Context: Reports: Other Associated Symptoms: Reports: Nausea/Vomiting Abdominal Pain Score (Numeric/FACES): 7 - Related Data Allergies Allergy/AdvReac Type Severity Reaction Status Date / Time losartan [From Cozaar] Allergy Cannot Verified 01/17/21 13:31 Remember milk Allergy Nausea and Verified 01/17/21 13:31 Vomiting ceder Allergy Swelling Uncoded 01/17/21 13:31 Home Meds: Home Meds Metoprolol Succinate [Toprol Xl] 100 mg PO BID 06/22/14 [History] Tacrolimus 1 - 1.5 mg PO BID 06/22/14 [History] mycophenolate mofetiL [Cellcept] 750 mg PO BID 06/22/14 [History] predniSONE 5 mg PO DAILY 06/22/14 [History] Acetaminophen 650 mg PO ASDIRECTED PRN 01/01/19 [History] Aspirin [Halfprin] 81 mg PO DAILY 01/01/19 [History] Calcium Carb, Citrate/Vit D3 [Calcium + D3 ER Tablet] 1 tab PO DAILY 01/01/19 [History] Isosorbide Mononitrate [Imdur] 30 mg PO DAILY 01/01/19 [History] Magnesium 800 mg PO BID 01/01/19 [History] Multivitamin [Multivitamins] 1 tab PO DAILY 01/01/19 [History] Omeprazole 20 mg PO DAILY 01/01/19 [History] amLODIPine Besylate [Amlodipine Besylate] 5 mg PO DAILY 01/01/19 [History] Albuterol [Proair HFA] 1 puff IH Q6H PRN 04/18/20 [History] Sodium Bicarbonate 1,300 mg PO BID 04/18/20 [History] atorvaSTATin Calcium [Atorvastatin Calcium] 10 mg PO BEDTIME 04/18/20 [History] Past Medical History HEENT History: Reports: Impaired Vision Cardiovascular History: Reports: Arrhythmia, Hypertension, Other (See Below) Other Cardiovascular History: enlarged heart Respiratory History: Reports: None Gastrointestinal History: Reports: GERD Genitourinary History: Reports: Other (See Below) Other Genitourinary History: kidney transplant Musculoskeletal History: Reports: Back Pain, Chronic, Gout Neurological History: Reports: None Psychiatric History: Reports: Addiction Endocrine/Metabolic History: Reports: Obesity/BMI 30+, Osteopenia Hematologic History: Reports: None Immunologic History: Reports: Solid Organ Transplant Oncologic (Cancer) History: Reports: Bladder, Renal Dermatologic History: Reports: None - Infectious Disease History Infectious Disease History: Reports: None - Past Surgical History Head Surgeries/Procedures: Reports: None HEENT Surgical History: Reports: None Cardiovascular Surgical History: Reports: None Respiratory Surgical History: Reports: None GI Surgical History: Reports: None Male Surgical History: Reports: Nephrectomy Endocrine Surgical History: Reports: None Neurological Surgical History: Reports: None Musculoskeletal Surgical History: Reports: None Oncologic Surgical History: Reports: None Dermatological Surgical History: Reports: None Social & Family History - Family History Family Medical History: No Pertinent Family History - Caffeine Use Caffeine Use: Reports: Soda Other Caffeine Use: SODA POP DAILY - Recreational Drug Use Recreational Drug Use: Yes Drug Use in Last 12 Months: Yes Recreational Drug Type: Reports: Marijuana/Hashish Recreational Drug Use Frequency: Daily - Living Situation & Occupation Living situation: Reports: with Family Occupation: Employed ED ROS GENERAL - Review of Systems Review Of Systems: Comprehensive ROS is negative, except as noted in HPI. ED EXAM, GI/ABD - Physical Exam Exam: See Below Exam Limited By: No Limitations General Appearance: Alert, WD/WN, Anxious, Moderate Distress, Obese Eyes: Bilateral: Normal Appearance, EOMI Ears: Normal External Exam, Normal Canal, Hearing Grossly Normal, Normal TMs Nose: Normal Inspection, Normal Mucosa, No Blood Throat/Mouth: Normal Inspection, Normal Lips, Normal Teeth, Normal Gums, Normal Oropharynx, Normal Voice, No Airway Compromise Head: Atraumatic, Normocephalic Neck: Normal Inspection, Supple, Non-Tender, Full Range of Motion Respiratory/Chest: No Respiratory Distress, Lungs Clear, Normal Breath Sounds, No Accessory Muscle Use, Chest Non-Tender Cardiovascular: Normal Peripheral Pulses, Regular Rate, Rhythm, No Edema, No Gallop, No JVD, No Murmur, No Rub GI/Abdominal Exam: Normal Bowel Sounds, No Mass, Pelvis Stable, Distended, Guarding, Tender (diffuse upper abdominal tenderness and pain) (Male) Exam: Deferred Rectal (Males) Exam: Deferred Back Exam: Paraspinal Tenderness (diffuse lower back), Vertebral Tenderness (diffuse lower back) Extremities: Normal Inspection, Normal Range of Motion, Non-Tender, Normal Capillary Refill, No Pedal Edema Neurological: Alert, Oriented, CN II-XII Intact, Normal Cognition, Normal Gait, Normal Reflexes, No Motor/Sensory Deficits Psychiatric: Normal Affect, Normal Mood Skin Exam: Warm, Dry, Intact, Normal Color, No Rash Lymphatic: No Adenopathy Course - Vital Signs Last Recorded V/S: Last Vital Signs Temp 97.0 F 01/17/21 13:32 Pulse 50 L 01/17/21 13:32 Resp 20 01/17/21 13:32 BP 128/74 01/17/21 13:32 Pulse Ox 100 01/17/21 13:32 - Orders/Labs/Meds Orders: Active Orders 24 hr Category Date Time Status CULTURE BLOOD [BC] Stat Lab 01/17/21 13:41 Received REFLEX LACTIC ACID YES OR NO [CHEM] Routine Lab 01/17/21 14:14 Received Labs: Laboratory Tests 01/17/21 01/17/21 01/17/21 Range/Units 13:41 13:41 13:41 WBC 18.1 H (5.0-10.0) 10^3/uL RBC 5.12 (4.6-6.2) 10^6/uL Hgb 15.2 (14.0-18.0) g/dL Hct 44.2 (40.0-54.0) % MCV 86.3 (80-100) fL MCH 29.7 (27.0-34.0) pg MCHC 34.4 (33.0-35.0) g/dL Plt Count 278 (150-450) 10^3/uL Neut % (Auto) 87.4 H (42.2-75.2) % Lymph % (Auto) 6.0 L (20.5-50.1) % Gilliam % (Auto) 6.0 (2-8) % Eos % (Auto) 0.4 L (1.0-3.0) % Baso % (Auto) 0.2 (0.0-1.0) % Sodium 143 (136-145) mmol/L Potassium 3.6 (3.5-5.1) mmol/L Chloride 106 (98-107) mmol/L Carbon Dioxide 22 (21-32) mmol/L Anion Gap 18.6 H (7-13) mEq/L BUN 21 H (7-18) mg/dL Creatinine 1.61 H (0.70-1.30) mg/dL Est Cr Clr Drug Dosing 62.26 mL/min Estimated GFR (MDRD) 46 BUN/Creatinine Ratio 13.0 (No establ ref range) Glucose 183 H (70-99) mg/dL Lactic Acid 3.2 H* (0.4-2.0) mmol/L Calcium 8.8 (8.5-10.1) mg/dL Total Bilirubin 0.8 (0.2-1.0) mg/dL AST 13 L (15-37) U/L ALT 25 (16-63) U/L Alkaline Phosphatase 82 (46-116) U/L Total Protein 7.5 (6.4-8.2) g/dL Albumin 3.6 (3.4-5.0) g/dL Globulin 3.9 Albumin/Globulin Ratio 0.9 Amylase (25-115) U/L Lipase (73-393) U/L Urine Color (YELLOW) Urine Appearance (CLEAR) Urine pH (5.0-9.0) Ur Specific [place] (1.005-1.030) Urine Protein (NEGATIVE) Urine Glucose (UA) (NEGATIVE) Urine Ketones (NEGATIVE) Urine Occult Blood (NEGATIVE) Urine Nitrite (NEGATIVE) Urine Bilirubin (NEGATIVE) Urine Urobilinogen (0.2-1.0) mg/dL Ur Leukocyte Esterase (NEGATIVE) Urine RBC /HPF Urine WBC (0-5/HPF) /HPF Urine Mucus (NOT SEEN) /LPF Urine Opiates Screen (NEGATIVE) Ur Oxycodone Screen (NEGATIVE) Urine Methadone Screen (NEGATIVE) Ur Barbiturates Screen (NEGATIVE) U Tricyclic Antidepress (NEGATIVE) Ur Phencyclidine Scrn (NEGATIVE) Ur Amphetamine Screen (NEGATIVE) U Methamphetamines Scrn (NEGATIVE) Urine MDMA Screen (NEGATIVE) U Benzodiazepines Scrn (NEGATIVE) Urine Cocaine Screen (NEGATIVE) U Marijuana (THC) Screen (NEGATIVE) 01/17/21 01/17/21 01/17/21 Range/Units 13:41 14:30 14:30 WBC (5.0-10.0) 10^3/uL RBC (4.6-6.2) 10^6/uL Hgb (14.0-18.0) g/dL Hct (40.0-54.0) % MCV (80-100) fL MCH (27.0-34.0) pg MCHC (33.0-35.0) g/dL Plt Count (150-450) 10^3/uL Neut % (Auto) (42.2-75.2) % Lymph % (Auto) (20.5-50.1) % Gilliam % (Auto) (2-8) % Eos % (Auto) (1.0-3.0) % Baso % (Auto) (0.0-1.0) % Sodium (136-145) mmol/L Potassium (3.5-5.1) mmol/L Chloride (98-107) mmol/L Carbon Dioxide (21-32) mmol/L Anion Gap (7-13) mEq/L BUN (7-18) mg/dL Creatinine (0.70-1.30) mg/dL Est Cr Clr Drug Dosing mL/min Estimated GFR (MDRD) BUN/Creatinine Ratio (No establ ref range) Glucose (70-99) mg/dL Lactic Acid (0.4-2.0) mmol/L Calcium (8.5-10.1) mg/dL Total Bilirubin (0.2-1.0) mg/dL AST (15-37) U/L ALT (16-63) U/L Alkaline Phosphatase (46-116) U/L Total Protein (6.4-8.2) g/dL Albumin (3.4-5.0) g/dL Globulin Albumin/Globulin Ratio Amylase 74 (25-115) U/L Lipase 108 (73-393) U/L Urine Color Dark yellow (YELLOW) Urine Appearance Clear (CLEAR) Urine pH 7.5 (5.0-9.0) Ur Specific [place] 1.020 (1.005-1.030) Urine Protein 100 H (NEGATIVE) Urine Glucose (UA) Negative (NEGATIVE) Urine Ketones 15 H (NEGATIVE) Urine Occult Blood Negative (NEGATIVE) Urine Nitrite Negative (NEGATIVE) Urine Bilirubin Negative (NEGATIVE) Urine Urobilinogen 0.2 (0.2-1.0) mg/dL Ur Leukocyte Esterase Negative (NEGATIVE) Urine RBC 0-5 /HPF Urine WBC 0-5 (0-5/HPF) /HPF Urine Mucus Few H (NOT SEEN) /LPF Urine Opiates Screen Negative (NEGATIVE) Ur Oxycodone Screen Negative (NEGATIVE) Urine Methadone Screen Negative (NEGATIVE) Ur Barbiturates Screen Negative (NEGATIVE) U Tricyclic Antidepress Negative (NEGATIVE) Ur Phencyclidine Scrn Negative (NEGATIVE) Ur Amphetamine Screen Negative (NEGATIVE) U Methamphetamines Scrn Negative (NEGATIVE) Urine MDMA Screen Negative (NEGATIVE) U Benzodiazepines Scrn Negative (NEGATIVE) Urine Cocaine Screen Negative (NEGATIVE) U Marijuana (THC) Screen Positive H (NEGATIVE) Meds: Medications Discontinued Medications Generic Name Dose Route Start Last Admin Trade Name Rodolfoq PRN Reason Stop Dose Admin Hydromorphone HCl 1 mg 01/17/21 14:30 01/17/21 14:39 Hydromorphone 1 Mg/Ml Syringe IVPUSH 01/17/21 14:31 1 mg ONETIME ONE Administration Hydromorphone HCl 0.5 mg 01/17/21 16:31 Hydromorphone 0.5 Mg/0.5 Ml Syringe IVPUSH 01/17/21 16:32 ONETIME ONE Sodium Chloride 1,000 mls @ 999 mls/hr 01/17/21 13:27 01/17/21 14:05 Normal Saline IV 01/17/21 14:27 999 mls/hr .BOLUS ONE Administration Sodium Chloride 1,000 mls @ 999 mls/hr 01/17/21 14:23 01/17/21 14:39 Normal Saline IV 01/17/21 15:23 999 mls/hr .BOLUS ONE Administration Iopamidol 100 ml 01/17/21 14:25 01/17/21 14:57 Iopamidol 612 Mg/Ml 100 Ml Bottle IVPUSH 01/17/21 14:26 75 ml ONETIME ONE Administration Metoclopramide HCl 10 mg 01/17/21 16:26 Metoclopramide 10 Mg/2 Ml Sdv IVPUSH 01/17/21 16:27 ONETIME ONE Pantoprazole Sodium 40 mg 01/17/21 16:26 Pantoprazole 40 Mg Vial IVPUSH 01/17/21 16:27 ONETIME ONE Promethazine HCl 25 mg 01/17/21 13:28 01/17/21 13:57 Promethazine 25 Mg/Ml Sdv IM 01/17/21 13:29 25 mg ONETIME ONE Administration Departure - Departure Time of Disposition: 16:33 Disposition: Home, Self-Care 01 Condition: Fair Clinical Impression: Gastroenteritis - Discharge Information *PRESCRIPTION DRUG MONITORING PROGRAM REVIEWED*: Not Applicable *COPY OF PRESCRIPTION DRUG MONITORING REPORT IN PATIENT TAMIKO: Not Applicable Instructions: Viral Gastroenteritis, Adult, [id number], Nausea and Vomiting, Adult, [id number] Forms: ED Department Discharge Care Plan Goals: The patient was advised of the examination, lab and CT results during the visit. The patient was given an injection of Phenergan, 2 IV doses of Dilaudid, an IV dose of Reglan and an IV dose of Protonix while in the ED. The patient was discharged with a script for Omeprazole (20 mg) #30 to take 1 by mouth 30 minutes before eating daily for 30 days. The patient was encouraged to stick to a BRAT diet (bananas, rice, applesauce and toast) with small sips of fluid frequently over the next 48 hours. If the patient has any additional symptoms or concerns, the patient should either return to the emergency department or visit his primary care facility. Sepsis Event Note (ED) - Evaluation Sepsis Screening Result: No Definite Risk - Focused Exam Vital Signs: Vital Signs Temp Pulse Resp BP Pulse Ox 01/17/21 13:32 97.0 F 50 L 20 128/74 100 - My Orders Last 24 Hours: My Active Orders 01/17/21 13:41 CULTURE BLOOD [BC] Stat 01/17/21 14:14 REFLEX LACTIC ACID YES OR NO [CHEM] Routine - Assessment/Plan Last 24 Hours: My Active Orders 01/17/21 13:41 CULTURE BLOOD [BC] Stat 01/17/21 14:14 REFLEX LACTIC ACID YES OR NO [CHEM] Routine
--- NOTE | 2021-01-17 16:14 | CT ---
EXAMINATION: Abdomen Pelvis w Cont SEX: Male AGE: 45 years CLINICAL HISTORY: 45-year-old hypertensive 217 pound male smoker with abdominal pain who, significantly, has a history diverticulosis distal colon, renal cancer and "transplant". WBC 18,000. CT exam 18 April 2020 (WBC 25,000) confirmed "renal transplant RLQ; sigmoid diverticulosis". Reevaluate please. Scan technique: Volume acquisition of data from the abdomen and pelvis (kidneys/ureters/bladder) obtained without oral contrast but during/after intravenous administration 75 cc nonionic Isovue 300 cc contrast at 3 mL/s via injector while patient was lying supine on the Siemens multislice scanner [place], [place]. All data archived in the PACS system for storage, reformatting axial/sagittal/coronal planes and study. Interpretation: 1. Normal size but central bilobed prostate impression base of the urinary bladder. Seminal vesicles unremarkable. 2. 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 3. Transplant kidney (RLQ) normal size and anatomic configuration. No cystic/solid right renal cortical mass lesion, nephrolithiasis or signs of obstructive uropathy i.e. no pyelocaliectasis or ureterectasis on the right. Normal bladder. 4. Several diverticula sigmoid colon without associated signs of inflammation. 5. No new pelvic or abdominal mass lesion. No inflammatory "dirty" peritoneal fat. No sign of mesenteric or retroperitoneal lymphadenopathy, mechanical bowel obstruction, ascites or free intraperitoneal air. No abscess. 6. Gallbladder, liver, stomach, spleen, pancreas and adrenal glands unremarkable. 7. Lung bases clear. Normal cardiac silhouette. No pericardial or pleural effusions. No pneumothorax. 8. Normal caliber aortoiliac vessels. Lumbar spine unremarkable. No ventral wall hernias. CONCLUSION: No sign of infection, abdominal malignancy or bowel obstruction. Right nephrectomy (renal transplant RLQ) and congenitally small left kidney.
[2021-01-17] MEDS ORDERED: Pantoprazole 40 MG Vial IVPUSH ONE (16:26)
[2021-01-17] MEDS ORDERED: Metoclopramide 10 MG/2 ML SDV IVPUSH ONE (16:26)
[2021-01-17] MEDS ORDERED: HYDROmorphone 0.5 MG/0.5 ML Syringe IVPUSH ONE (16:31)
== END 2021-01-17 16:57 | disposition home or self-care (01) ==
LOC: DL.ED 13:23
DX: K52.9 Noninfective gastroenteritis and colitis, unspecified (principal); I10 Essential (primary) hypertension; K21.9 Gastro-esophageal reflux disease without esophagitis; M10.9 Gout, unspecified; E66.9 Obesity, unspecified; Z68.29 Body mass index [BMI] 29.0-29.9, adult; Z91.011 Allergy to milk products; Z88.8 Allergy status to other drugs, medicaments and biological substances; Z91.048 Other nonmedicinal substance allergy status; Z79.82 Long term (current) use of aspirin; Z79.899 Other long term (current) drug therapy
CPT/HCPCS: 36415; 74177; 80053; 80305; 81001; 82150; 83605; 83690; 85025; 87040; 96372; 96374; 96375; 96376; 99284; C9113; J1170; J2550; J2765; J7030; Q9967

== ENCOUNTER 2021-05-07 13:17 | Emergency (ER) | payer OTHER | END 2021-05-07 15:00 | disposition left against medical advice (07) | LOC: DL.ED 13:17 | DX: R10.9 Unspecified abdominal pain (principal); Z53.21 Procedure and treatment not carried out due to patient leaving prior to being seen by health care provider ==

== ENCOUNTER 2021-05-08 01:44 | Emergency (ER) | payer MEDICAID, OTHER ==
[2021-05-08] MEDS ORDERED: Famotidine 20 MG/2 ML SDV IVPUSH ONE (01:49)
[2021-05-08 01:50] VITALS: BP 114/81; PULSE 64
[2021-05-08] MEDS ORDERED: HYDROmorphone 1 MG/ML Syringe IVPUSH ONE (01:50)
[2021-05-08 02:10] LABS: ANION GAP 18.7 mEq/L (7-13); CHLORIDE,CL 101 mmol/L (98-107); SODIUM,NA 138 mmol/L (136-145)
--- NOTE | 2021-05-08 02:43 | EDM.PDOC ---
ED HPI GENERAL MEDICAL PROBLEM - General Chief Complaint: Abdominal Pain Stated Complaint: [facility] Time Seen by Provider: 05/08/21 01:50 Source of Information: Reports: Patient History Limitations: Reports: No Limitations - History of Present Illness INITIAL COMMENTS - FREE TEXT/NARRATIVE: ED report increasing lower abdominal pain cramping since Friday. Hx multiple episodes of same since remote kidney transplant. States side effect of antirejection drugs. Nausea vomiting Abdomen Pain Score (Numeric/FACES): 10 - Related Data Allergies Allergy/AdvReac Type Severity Reaction Status Date / Time losartan [From Cozaar] Allergy Cannot Verified 05/08/21 01:56 Remember milk Allergy Nausea and Verified 05/08/21 01:56 Vomiting ceder Allergy Swelling Uncoded 05/08/21 01:45 Home Meds: Home Meds Metoprolol Succinate [Toprol Xl] 100 mg PO BID 06/22/14 [History] Tacrolimus 1 - 1.5 mg PO BID 06/22/14 [History] mycophenolate mofetiL [Cellcept] 750 mg PO BID 06/22/14 [History] predniSONE 5 mg PO DAILY 06/22/14 [History] Acetaminophen 650 mg PO ASDIRECTED PRN 01/01/19 [History] Aspirin [Halfprin] 81 mg PO DAILY 01/01/19 [History] Calcium Carb, Citrate/Vit D3 [Calcium + D3 ER Tablet] 1 tab PO DAILY 01/01/19 [History] Isosorbide Mononitrate [Imdur] 30 mg PO DAILY 01/01/19 [History] Magnesium 800 mg PO BID 01/01/19 [History] Multivitamin [Multivitamins] 1 tab PO DAILY 01/01/19 [History] amLODIPine Besylate [Amlodipine Besylate] 5 mg PO DAILY 01/01/19 [History] Albuterol [Proair HFA] 1 puff IH Q6H PRN 04/18/20 [History] Sodium Bicarbonate 1,300 mg PO BID 04/18/20 [History] atorvaSTATin Calcium [Atorvastatin Calcium] 10 mg PO BEDTIME 04/18/20 [History] Past Medical History HEENT History: Reports: Impaired Vision Cardiovascular History: Reports: Arrhythmia, Hypertension, Other (See Below) Other Cardiovascular History: enlarged heart Respiratory History: Reports: None Gastrointestinal History: Reports: GERD Genitourinary History: Reports: Other (See Below) Other Genitourinary History: rt kidney transplant Musculoskeletal History: Reports: Back Pain, Chronic, Gout Neurological History: Reports: None Psychiatric History: Reports: Addiction Endocrine/Metabolic History: Reports: Obesity/BMI 30+, Osteopenia Hematologic History: Reports: None Immunologic History: Reports: Solid Organ Transplant Oncologic (Cancer) History: Reports: Bladder, Renal Dermatologic History: Reports: None - Infectious Disease History Infectious Disease History: Reports: None - Past Surgical History Head Surgeries/Procedures: Reports: None HEENT Surgical History: Reports: None Cardiovascular Surgical History: Reports: None Respiratory Surgical History: Reports: None GI Surgical History: Reports: None Male Surgical History: Reports: Nephrectomy Endocrine Surgical History: Reports: None Neurological Surgical History: Reports: None Musculoskeletal Surgical History: Reports: None Oncologic Surgical History: Reports: None Dermatological Surgical History: Reports: None Social & Family History - Family History Family Medical History: No Pertinent Family History - Tobacco Use Tobacco Use Status *Q: Current Every Day Tobacco User Years of Tobacco use: 5 Packs/Tins Daily: 0.2 Used Tobacco, but Quit: No - Caffeine Use Caffeine Use: Reports: Soda Other Caffeine Use: SODA POP DAILY - Recreational Drug Use Recreational Drug Use: Yes Drug Use in Last 12 Months: Yes Recreational Drug Type: Reports: Marijuana/Hashish Recreational Drug Use Frequency: Daily - Living Situation & Occupation Living situation: Reports: with Family Occupation: Employed ED ROS GENERAL - Review of Systems Review Of Systems: Comprehensive ROS is negative, except as noted in HPI. ED EXAM, GI/ABD - Physical Exam Exam: See Below Exam Limited By: No Limitations General Appearance: Alert, Mild Distress Eyes: Bilateral: EOMI Ears: Normal External Exam, Hearing Grossly Normal Nose: Normal Inspection Throat/Mouth: Normal Inspection Head: Atraumatic, Normocephalic Neck: Normal Inspection Respiratory/Chest: No Respiratory Distress, Lungs Clear, Normal Breath Sounds Cardiovascular: Normal Peripheral Pulses, Regular Rate, Rhythm GI/Abdominal Exam: Soft, No Distention, Abnormal Bowel Sounds (hypoactive) Back Exam: Full Range of Motion Extremities: Normal Inspection Neurological: Alert, Oriented, Normal Cognition Psychiatric: Normal Affect, Normal Mood Skin Exam: Warm, Dry, Intact, Normal Color Course - Vital Signs Last Recorded V/S: Last Vital Signs Temp 99.3 F 05/08/21 01:48 Pulse 64 05/08/21 01:48 Resp 18 05/08/21 01:48 BP 114/81 05/08/21 01:48 Pulse Ox 99 05/08/21 01:48 - Orders/Labs/Meds Orders: Active Orders 24 hr Category Date Time Status CULTURE BLOOD [BC] Stat Lab 05/08/21 01:46 Received Labs: Laboratory Tests 05/08/21 05/08/21 05/08/21 Range/Units 01:46 01:46 01:46 WBC 15.8 H (5.0-10.0) 10^3/uL RBC 4.82 (4.6-6.2) 10^6/uL Hgb 14.4 (14.0-18.0) g/dL Hct 41.4 (40.0-54.0) % MCV 85.9 (80-100) fL MCH 29.9 (27.0-34.0) pg MCHC 34.8 (33.0-35.0) g/dL Plt Count 241 (150-450) 10^3/uL Neut % (Auto) 80.0 H (42.2-75.2) % Lymph % (Auto) 13.9 L (20.5-50.1) % White % (Auto) 5.8 (2-8) % Eos % (Auto) 0.1 L (1.0-3.0) % Baso % (Auto) 0.2 (0.0-1.0) % PT 10.4 (9.0-12.0) SEC INR 1.0 (0.9-1.2) Sodium 138 (136-145) mmol/L Potassium 3.7 (3.5-5.1) mmol/L Chloride 101 (98-107) mmol/L Carbon Dioxide 22 (21-32) mmol/L Anion Gap 18.7 H (7-13) mEq/L BUN 25 H (7-18) mg/dL Creatinine 1.85 H (0.70-1.30) mg/dL Est Cr Clr Drug Dosing 54.18 mL/min Estimated GFR (MDRD) 39 BUN/Creatinine Ratio 13.5 (No establ ref range) Glucose 114 H (70-99) mg/dL Lactic Acid (0.4-2.0) mmol/L Calcium 9.4 (8.5-10.1) mg/dL Magnesium 1.7 L (1.8-2.4) mg/dL Total Bilirubin 0.7 (0.2-1.0) mg/dL AST 13 L (15-37) U/L ALT 21 (16-63) U/L Alkaline Phosphatase 74 (46-116) U/L Total Protein 7.6 (6.4-8.2) g/dL Albumin 3.7 (3.4-5.0) g/dL Globulin 3.9 Albumin/Globulin Ratio 0.9 Amylase 78 (25-115) U/L Lipase 228 (73-393) U/L Ethyl Alcohol < 3 (0) mg/dL SARS-CoV-2 RNA (NEFTALY) (NEGATIVE) 05/08/21 05/08/21 Range/Units 01:46 01:47 WBC (5.0-10.0) 10^3/uL RBC (4.6-6.2) 10^6/uL Hgb (14.0-18.0) g/dL Hct (40.0-54.0) % MCV (80-100) fL MCH (27.0-34.0) pg MCHC (33.0-35.0) g/dL Plt Count (150-450) 10^3/uL Neut % (Auto) (42.2-75.2) % Lymph % (Auto) (20.5-50.1) % White % (Auto) (2-8) % Eos % (Auto) (1.0-3.0) % Baso % (Auto) (0.0-1.0) % PT (9.0-12.0) SEC INR (0.9-1.2) Sodium (136-145) mmol/L Potassium (3.5-5.1) mmol/L Chloride (98-107) mmol/L Carbon Dioxide (21-32) mmol/L Anion Gap (7-13) mEq/L BUN (7-18) mg/dL Creatinine (0.70-1.30) mg/dL Est Cr Clr Drug Dosing mL/min Estimated GFR (MDRD) BUN/Creatinine Ratio (No establ ref range) Glucose (70-99) mg/dL Lactic Acid 1.7 (0.4-2.0) mmol/L Calcium (8.5-10.1) mg/dL Magnesium (1.8-2.4) mg/dL Total Bilirubin (0.2-1.0) mg/dL AST (15-37) U/L ALT (16-63) U/L Alkaline Phosphatase (46-116) U/L Total Protein (6.4-8.2) g/dL Albumin (3.4-5.0) g/dL Globulin Albumin/Globulin Ratio Amylase (25-115) U/L Lipase (73-393) U/L Ethyl Alcohol (0) mg/dL SARS-CoV-2 RNA (NEFTALY) Negative (NEGATIVE) Meds: Medications Discontinued Medications Generic Name Dose Route Start Last Admin Trade Name Freq PRN Reason Stop Dose Admin Famotidine 20 mg 05/08/21 01:49 05/08/21 02:00 Famotidine 20 Mg/2 Ml Sdv IVPUSH 05/08/21 01:50 20 mg ONETIME ONE Administration Hydromorphone HCl 1 mg 05/08/21 01:50 05/08/21 01:57 Hydromorphone 1 Mg/Ml Syringe IVPUSH 05/08/21 01:51 1 mg ONETIME ONE Administration - Re-Assessments/Exams Free Text/Narrative Re-Assessment/Exam: 05/08/21 04:32 Pain improved, tolerable. No nausea or vomiting. Departure - Departure Time of Disposition: 04:40 Disposition: Home, Self-Care 01 Condition: Good Clinical Impression: Diverticulosis Abdominal pain Qualifiers: Abdominal location: lower abdomen, unspecified Qualified Code(s): R10.30 - Lower abdominal pain, unspecified - Discharge Information *PRESCRIPTION DRUG MONITORING PROGRAM REVIEWED*: No *COPY OF PRESCRIPTION DRUG MONITORING REPORT IN PATIENT TAMIKO: No Instructions: Abdominal Pain, Adult Forms: ED Department Discharge Additional Instructions: rest light diet, bland low fat start liquids gradual advance as tolerated zofran 4mg ODT one every 4 hours as needed for nausea/vomiting Follow up if pain worsens and unable to control nausea Sepsis Event Note (ED) - Evaluation Sepsis Screening Result: No Definite Risk - Focused Exam Vital Signs: Vital Signs Temp Pulse Resp BP Pulse Ox 05/08/21 01:48 99.3 F 64 18 114/81 99 - My Orders Last 24 Hours: My Active Orders 05/08/21 01:46 CULTURE BLOOD [BC] Stat - Assessment/Plan Last 24 Hours: My Active Orders 05/08/21 01:46 CULTURE BLOOD [BC] Stat
--- NOTE | 2021-05-08 04:53 | CT ---
PROCEDURE INFORMATION: Exam: CT Abdomen And Pelvis Without Contrast Exam date and time: 05/08/2021 2:28 AM Age: 45 years old Clinical indication: Abdominal pain, nausea. Renal transplant. Renal CA post right kidney removal. TECHNIQUE: Imaging protocol: Computed tomography of the abdomen and pelvis without contrast. Radiation optimization: All CT scans at this facility use at least one of these dose optimization techniques: automated exposure control; mA and/or kV adjustment per patient size (includes targeted exams where dose is matched to clinical indication); or iterative reconstruction. COMPARISON: CT Abdomen Pelvis 01/17/2021 2:54 PM FINDINGS: Lung bases are clear. Post right nephrectomy. The left kidney is markedly atrophic. Punctate left renal collecting system stone. Two small left renal cysts are present, larger 8 mm. Renal transplant remains in the right lower quadrant of the abdomen which is unremarkable by unenhanced examination. Remaining solid abdominal organs are unremarkable by unenhanced examination. No radiopaque ureteral or urinary bladder stones, hydronephrosis, or ureteral dilatation. The gallbladder is fluid filled. No radiopaque gallstones or biliary ductal dilatation. Fluid and gas filled stomach which is not significantly distended. Multiple descending and sigmoid colonic diverticula without associated inflammatory changes. Bowel is otherwise unremarkable by unenhanced examination. Normal appendix is identified. No abdominal aortic aneurysm. No abdominal or pelvic lymphadenopathy. The urinary bladder is fluid filled and unremarkable. No free intraperitoneal air or fluid. Small nodular area of soft tissue swelling with mild adjacent stranding is present in the right low anterior pelvic wall subcutaneous fat which extends to the skin, 1.8 x 1.2 cm axial dimensions (series 2, image 122). This was present on the comparison examination though has enlarged. Osseous structures are intact. IMPRESSION: 1. Post right nephrectomy. 2. Markedly atrophic left kidney. 3. Post renal transplant. 4. Colonic diverticulosis without evidence of diverticulitis. 5. Small nodular soft tissue attenuation area in the right low anterior pelvic wall subcutaneous fat with some interval enlargement since the comparison examination. There is mild adjacent stranding which may indicate inflammatory change. Correlate with physical examination of this area. 6. Otherwise no acute abdominal findings by unenhanced examination.
== END 2021-05-08 05:03 | disposition home or self-care (01) ==
LOC: DL.ED 01:44
DX: K57.30 Diverticulosis of large intestine without perforation or abscess without bleeding (principal); I10 Essential (primary) hypertension; E66.9 Obesity, unspecified; Z68.28 Body mass index [BMI] 28.0-28.9, adult; Z88.8 Allergy status to other drugs, medicaments and biological substances; Z91.012 Allergy to eggs; Z88.1 Allergy status to other antibiotic agents; Z79.899 Other long term (current) drug therapy; Z79.82 Long term (current) use of aspirin; Z72.0 Tobacco use; Z20.822 Contact with and (suspected) exposure to COVID-19
CPT/HCPCS: 36415; 74176; 80053; 80307; 82150; 83605; 83690; 83735; 85025; 85610; 87040; 87635; 96374; 96375; 99285; J1170; J3490; U0002

== ENCOUNTER 2021-05-09 08:49 | Emergency (ER) | payer MEDICAID, OTHER ==
[2021-05-09 09:09] VITALS: BP 154/108; PULSE 48
[2021-05-09 09:28] LABS: AMPHETAMINES,URINE NEGATIVE (NEGATIVE); BARBITURATES,URINE NEGATIVE (NEGATIVE); BENZODIAZEPINE,URINE NEGATIVE (NEGATIVE); MDMA (ECSTASY), URINE NEGATIVE (NEGATIVE); METHADONE,URINE NEGATIVE (NEGATIVE); METHAMPHETAMINES,URINE NEGATIVE (NEGATIVE); OPIATES,URINE NEGATIVE (NEGATIVE); OXYCODONE,URINE NEGATIVE (NEGATIVE); PHENCYCLIDINE,URINE NEGATIVE (NEGATIVE); TCA,URINE NEGATIVE (NEGATIVE)
[2021-05-09] MEDS ORDERED: HYDROmorphone 1 MG/ML Syringe IVPUSH ONE ×2 (09:32→10:43)
[2021-05-09 09:35] LABS: ANION GAP 16.3 mEq/L (7-13); CHLORIDE,CL 104 mmol/L (98-107); SODIUM,NA 140 mmol/L (136-145)
[2021-05-09 09:39] LABS: ACETAMINOPHEN 0 ug/mL (10-30 (Therapeutic))
--- NOTE | 2021-05-09 10:07 | EDM.PDOC ---
ED HPI GENERAL MEDICAL PROBLEM - General Chief Complaint: Abdominal Pain Stated Complaint: AMBULANCE Time Seen by Provider: 05/09/21 09:20 Source of Information: Reports: Patient History Limitations: Reports: No Limitations - History of Present Illness INITIAL COMMENTS - FREE TEXT/NARRATIVE: This 45 yo male patient returns to the ED with increased lower abdominal pain. The patient reports he has been having the same pain over the past 2 days. The patient reports he has been taking his Zofran as prescribed, but has not taken anything else for temporary symptom relief. Onset: Unknown/Unsure Duration: Day(s):, Constant, Getting Worse Location: Reports: Abdomen Quality: Reports: Ache, Sharp Severity: Severe Improves with: Reports: None Worsens with: Reports: None Context: Reports: Other Associated Symptoms: Reports: Nausea/Vomiting - Related Data Allergies Allergy/AdvReac Type Severity Reaction Status Date / Time losartan [From Cozaar] Allergy Cannot Verified 05/08/21 01:56 Remember milk Allergy Nausea and Verified 05/08/21 01:56 Vomiting ceder Allergy Swelling Uncoded 05/08/21 01:45 Home Meds: Home Meds Metoprolol Succinate [Toprol Xl] 100 mg PO BID 06/22/14 [History] Tacrolimus 1 - 1.5 mg PO BID 06/22/14 [History] mycophenolate mofetiL [Cellcept] 750 mg PO BID 06/22/14 [History] predniSONE 5 mg PO DAILY 06/22/14 [History] Acetaminophen 650 mg PO ASDIRECTED PRN 01/01/19 [History] Aspirin [Halfprin] 81 mg PO DAILY 01/01/19 [History] Calcium Carb, Citrate/Vit D3 [Calcium + D3 ER Tablet] 1 tab PO DAILY 01/01/19 [History] Isosorbide Mononitrate [Imdur] 30 mg PO DAILY 01/01/19 [History] Magnesium 800 mg PO BID 01/01/19 [History] Multivitamin [Multivitamins] 1 tab PO DAILY 01/01/19 [History] amLODIPine Besylate [Amlodipine Besylate] 5 mg PO DAILY 01/01/19 [History] Albuterol [Proair HFA] 1 puff IH Q6H PRN 04/18/20 [History] Sodium Bicarbonate 1,300 mg PO BID 04/18/20 [History] atorvaSTATin Calcium [Atorvastatin Calcium] 10 mg PO BEDTIME 04/18/20 [History] Past Medical History HEENT History: Reports: Impaired Vision Cardiovascular History: Reports: Arrhythmia, Hypertension, Other (See Below) Other Cardiovascular History: enlarged heart Respiratory History: Reports: None Gastrointestinal History: Reports: GERD Genitourinary History: Reports: Other (See Below) Other Genitourinary History: kidney transplant Musculoskeletal History: Reports: Back Pain, Chronic, Gout Neurological History: Reports: None Psychiatric History: Reports: Addiction Endocrine/Metabolic History: Reports: Obesity/BMI 30+, Osteopenia Hematologic History: Reports: None Immunologic History: Reports: Solid Organ Transplant Oncologic (Cancer) History: Reports: Bladder, Renal Dermatologic History: Reports: None - Infectious Disease History Infectious Disease History: Reports: None - Past Surgical History Head Surgeries/Procedures: Reports: None HEENT Surgical History: Reports: None Cardiovascular Surgical History: Reports: None Respiratory Surgical History: Reports: None GI Surgical History: Reports: None Male Surgical History: Reports: Nephrectomy Endocrine Surgical History: Reports: None Neurological Surgical History: Reports: None Musculoskeletal Surgical History: Reports: None Oncologic Surgical History: Reports: None Dermatological Surgical History: Reports: None Social & Family History - Family History Family Medical History: No Pertinent Family History - Tobacco Use Tobacco Use Status *Q: Unknown Ever Used Tobacco Second Hand Smoke Exposure: No - Caffeine Use Caffeine Use: Reports: Soda Other Caffeine Use: SODA POP DAILY - Living Situation & Occupation Living situation: Reports: with Family Occupation: Employed ED ROS GENERAL - Review of Systems Review Of Systems: Comprehensive ROS is negative, except as noted in HPI. ED EXAM, GI/ABD - Physical Exam Exam: See Below Exam Limited By: No Limitations General Appearance: Alert, WD/WN, Moderate Distress Eyes: Bilateral: Normal Appearance, EOMI Ears: Normal External Exam, Normal Canal, Hearing Grossly Normal, Normal TMs Nose: Normal Inspection, Normal Mucosa, No Blood Throat/Mouth: Normal Inspection, Normal Lips, Normal Teeth, Normal Gums, Normal Oropharynx, Normal Voice, No Airway Compromise Head: Atraumatic, Normocephalic Neck: Normal Inspection, Supple, Non-Tender, Full Range of Motion Respiratory/Chest: No Respiratory Distress, Lungs Clear, Normal Breath Sounds, No Accessory Muscle Use, Chest Non-Tender Cardiovascular: Normal Peripheral Pulses, Regular Rate, Rhythm, No Edema, No Gallop, No JVD, No Murmur, No Rub GI/Abdominal Exam: Guarding, Tender (Male) Exam: Deferred Rectal (Males) Exam: Deferred Back Exam: Normal Inspection, Full Range of Motion, NT Extremities: Normal Inspection, Normal Range of Motion, Non-Tender, Normal Capillary Refill, No Pedal Edema Neurological: Alert, Oriented, CN II-XII Intact, Normal Cognition, Normal Gait, Normal Reflexes, No Motor/Sensory Deficits Psychiatric: Normal Affect, Normal Mood Skin Exam: Warm, Dry, Intact, Normal Color, No Rash Lymphatic: No Adenopathy Course - Vital Signs Last Recorded V/S: Last Vital Signs Temp 97.6 F 05/09/21 09:06 Pulse 48 L 05/09/21 09:06 Resp 18 05/09/21 09:06 BP 154/108 H 05/09/21 09:06 Pulse Ox 100 05/09/21 09:06 - Orders/Labs/Meds Orders: Active Orders 24 hr Category Date Time Status CULTURE BLOOD [BC] Stat Lab 05/09/21 09:09 Received Labs: Laboratory Tests 05/09/21 05/09/21 05/09/21 Range/Units 09:09 09:09 09:09 WBC 16.9 H (5.0-10.0) 10^3/uL RBC 5.00 (4.6-6.2) 10^6/uL Hgb 15.0 (14.0-18.0) g/dL Hct 43.3 (40.0-54.0) % MCV 86.6 (80-100) fL MCH 30.0 (27.0-34.0) pg MCHC 34.6 (33.0-35.0) g/dL Plt Count 241 (150-450) 10^3/uL Neut % (Auto) 73.8 (42.2-75.2) % Lymph % (Auto) 15.1 L (20.5-50.1) % [place] % (Auto) 8.9 H (2-8) % Eos % (Auto) 1.8 (1.0-3.0) % Baso % (Auto) 0.4 (0.0-1.0) % Sodium 140 (136-145) mmol/L Potassium 3.3 L (3.5-5.1) mmol/L Chloride 104 (98-107) mmol/L Carbon Dioxide 23 (21-32) mmol/L Anion Gap 16.3 H (7-13) mEq/L BUN 25 H (7-18) mg/dL Creatinine 1.77 H (0.70-1.30) mg/dL Est Cr Clr Drug Dosing TNP Estimated GFR (MDRD) 41 BUN/Creatinine Ratio 14.1 (No establ ref range) Glucose 121 H (70-99) mg/dL Calcium 9.0 (8.5-10.1) mg/dL Magnesium 2.0 (1.8-2.4) mg/dL Total Bilirubin 0.7 (0.2-1.0) mg/dL AST 23 (15-37) U/L ALT 26 (16-63) U/L Alkaline Phosphatase 73 (46-116) U/L Ammonia 11 (11-32) umol/L Total Protein 7.6 (6.4-8.2) g/dL Albumin 3.7 (3.4-5.0) g/dL Globulin 3.9 Albumin/Globulin Ratio 0.9 Amylase 62 (25-115) U/L Lipase 114 (73-393) U/L Urine Color (YELLOW) Urine Appearance (CLEAR) Urine pH (5.0-9.0) Ur Specific Brothers (1.005-1.030) Urine Protein (NEGATIVE) Urine Glucose (UA) (NEGATIVE) Urine Ketones (NEGATIVE) Urine Occult Blood (NEGATIVE) Urine Nitrite (NEGATIVE) Urine Bilirubin (NEGATIVE) Urine Urobilinogen (0.2-1.0) mg/dL Ur Leukocyte Esterase (NEGATIVE) Urine RBC (0-5) /HPF Urine WBC (0-5/HPF) /HPF Ur Epithelial Cells (NOT SEEN) /HPF Urine Bacteria (0-FEW/HPF) /HPF Urine Mucus (NOT SEEN) /LPF Salicylates (2.8-20(Therapeutic)) mg/dL Urine Opiates Screen (NEGATIVE) Ur Oxycodone Screen (NEGATIVE) Urine Methadone Screen (NEGATIVE) Acetaminophen 0 L (10-30 (Therapeutic)) ug/mL Ur Barbiturates Screen (NEGATIVE) U Tricyclic Antidepress (NEGATIVE) Ur Phencyclidine Scrn (NEGATIVE) Ur Amphetamine Screen (NEGATIVE) U Methamphetamines Scrn (NEGATIVE) Urine MDMA Screen (NEGATIVE) U Benzodiazepines Scrn (NEGATIVE) Urine Cocaine Screen (NEGATIVE) U Marijuana (THC) Screen (NEGATIVE) Ethyl Alcohol < 3 (0) mg/dL 05/09/21 05/09/21 05/09/21 Range/Units 09:09 09:17 09:17 WBC (5.0-10.0) 10^3/uL RBC (4.6-6.2) 10^6/uL Hgb (14.0-18.0) g/dL Hct (40.0-54.0) % MCV (80-100) fL MCH (27.0-34.0) pg MCHC (33.0-35.0) g/dL Plt Count (150-450) 10^3/uL Neut % (Auto) (42.2-75.2) % Lymph % (Auto) (20.5-50.1) % [place] % (Auto) (2-8) % Eos % (Auto) (1.0-3.0) % Baso % (Auto) (0.0-1.0) % Sodium (136-145) mmol/L Potassium (3.5-5.1) mmol/L Chloride (98-107) mmol/L Carbon Dioxide (21-32) mmol/L Anion Gap (7-13) mEq/L BUN (7-18) mg/dL Creatinine (0.70-1.30) mg/dL Est Cr Clr Drug Dosing Estimated GFR (MDRD) BUN/Creatinine Ratio (No establ ref range) Glucose (70-99) mg/dL Calcium (8.5-10.1) mg/dL Magnesium (1.8-2.4) mg/dL Total Bilirubin (0.2-1.0) mg/dL AST (15-37) U/L ALT (16-63) U/L Alkaline Phosphatase (46-116) U/L Ammonia (11-32) umol/L Total Protein (6.4-8.2) g/dL Albumin (3.4-5.0) g/dL Globulin Albumin/Globulin Ratio Amylase (25-115) U/L Lipase (73-393) U/L Urine Color Yellow (YELLOW) Urine Appearance Clear (CLEAR) Urine pH 8.5 (5.0-9.0) Ur Specific Brothers 1.020 (1.005-1.030) Urine Protein 30 H (NEGATIVE) Urine Glucose (UA) Negative (NEGATIVE) Urine Ketones Negative (NEGATIVE) Urine Occult Blood Trace-intact H (NEGATIVE) Urine Nitrite Negative (NEGATIVE) Urine Bilirubin Negative (NEGATIVE) Urine Urobilinogen 0.2 (0.2-1.0) mg/dL Ur Leukocyte Esterase Negative (NEGATIVE) Urine RBC 0-5 (0-5) /HPF Urine WBC Not seen (0-5/HPF) /HPF Ur Epithelial Cells Rare (NOT SEEN) /HPF Urine Bacteria Not seen (0-FEW/HPF) /HPF Urine Mucus Not seen (NOT SEEN) /LPF Salicylates 5.2 (2.8-20(Therapeutic)) mg/dL Urine Opiates Screen Negative (NEGATIVE) Ur Oxycodone Screen Negative (NEGATIVE) Urine Methadone Screen Negative (NEGATIVE) Acetaminophen (10-30 (Therapeutic)) ug/mL Ur Barbiturates Screen Negative (NEGATIVE) U Tricyclic Antidepress Negative (NEGATIVE) Ur Phencyclidine Scrn Negative (NEGATIVE) Ur Amphetamine Screen Negative (NEGATIVE) U Methamphetamines Scrn Negative (NEGATIVE) Urine MDMA Screen Negative (NEGATIVE) U Benzodiazepines Scrn Negative (NEGATIVE) Urine Cocaine Screen Negative (NEGATIVE) U Marijuana (THC) Screen Positive H (NEGATIVE) Ethyl Alcohol (0) mg/dL Meds: Medications Discontinued Medications Generic Name Dose Route Start Last Admin Trade Name Freq PRN Reason Stop Dose Admin Ciprofloxacin 500 mg 05/09/21 10:46 Ciprofloxacin 500 Mg Tab PO 05/09/21 10:47 ONETIME ONE Hydromorphone HCl 1 mg 05/09/21 09:32 05/09/21 09:48 Hydromorphone 1 Mg/Ml Syringe IVPUSH 05/09/21 09:33 1 mg ONETIME ONE Administration Hydromorphone HCl 1 mg 05/09/21 10:43 Hydromorphone 1 Mg/Ml Syringe IVPUSH 05/09/21 10:44 ONETIME ONE Metronidazole 500 mg 05/09/21 10:46 Metronidazole 250 Mg Tab PO 05/09/21 10:47 ONETIME ONE Departure - Departure Time of Disposition: 10:50 Disposition: Home, Self-Care 01 Condition: Fair Clinical Impression: Diverticula of intestine Abdominal pain Qualifiers: Abdominal location: lower abdomen, unspecified Qualified Code(s): R10.30 - Lower abdominal pain, unspecified - Discharge Information *PRESCRIPTION DRUG MONITORING PROGRAM REVIEWED*: Not Applicable *COPY OF PRESCRIPTION DRUG MONITORING REPORT IN PATIENT TAMIKO: Not Applicable Instructions: Abdominal Pain, Adult, [id number] Forms: ED Department Discharge Care Plan Goals: The patient was advised of the examination, lab and CT results during the visit today. The patient was started on Cipro and Metronidazole during the visit. The patient was discharged with scripts for Cipro (500 mg) #14 to take 1 by mouth 2 times per day for 7 days and Metronidazole (500 mg) #21 to take 1 by mouth 3 times per day for 7 days. The patient should avoid using marijuana. The patient may continue to take his Zofran as prescribed. If the patient has any additional symptoms or concerns, the patient should visit his primary care facility or return to the emergency department. Sepsis Event Note (ED) - Focused Exam Vital Signs: Vital Signs Temp Pulse Resp BP Pulse Ox 05/09/21 09:06 97.6 F 48 L 18 154/108 H 100 - My Orders Last 24 Hours: My Active Orders 05/09/21 09:09 CULTURE BLOOD [BC] Stat - Assessment/Plan Last 24 Hours: My Active Orders 05/09/21 09:09 CULTURE BLOOD [BC] Stat
--- NOTE | 2021-05-09 10:34 | CT ---
PROCEDURE INFORMATION: Exam: CT Abdomen And Pelvis Without Contrast Exam date and time: 05/09/2021 9:56 AM Age: 45 years old Clinical indication: Other: Lower abdominal pain; Prior surgery; Surgery date: 6+ months; Surgery type: Kidney transplant TECHNIQUE: Imaging protocol: Computed tomography of the abdomen and pelvis without contrast. Radiation optimization: All CT scans at this facility use at least one of these dose optimization techniques: automated exposure control; mA and/or kV adjustment per patient size (includes targeted exams where dose is matched to clinical indication); or iterative reconstruction. COMPARISON: CT Abdomen Pelvis wo Cont 05/08/2021 2:28 AM FINDINGS: Liver: Normal. No mass. Gallbladder and bile ducts: Normal. No calcified stones. No ductal dilation. Pancreas: Normal. No ductal dilation. Spleen: Normal. No splenomegaly. Adrenal glands: Normal. No mass. Kidneys and ureters: Transplant kidney is present within the right lower quadrant. No hydronephrosis present. The right kidney appears to have been removed. The left kidney is markedly atrophic. Stomach and bowel: There are several scattered diverticula within the descending and sigmoid colon with mild pericolonic fat stranding. Findings suggestive mild diverticulitis. Palliative Care Nurse Practitioner changes are seen in the pericolonic fat of the mid descending colon on image number 43 of series 2. Appendix: No evidence of appendicitis. Intraperitoneal space: There is no intraperitoneal abscess. There is no free fluid or free air. Vasculature: Unremarkable. No abdominal aortic aneurysm. Lymph nodes: [place] retroperitoneal lymph nodes are present which do not meet pathologic size criteria. [place] bilateral inguinal lymph nodes are also present which do not meet pathologic size criteria. Urinary bladder: Unremarkable as visualized. Reproductive: Unremarkable as visualized. Bones/joints: Unremarkable. No acute fracture. Soft tissues: There is skin thickening within the anterior abdominal wall below the umbilicus. There appears to be a soft tissue nodule at the level of the symphysis pubis off midline toward the right. This is similar in appearance to the previous examination and is nonspecific. There appears to be associated skin thickening. Recommend clinical correlation for focal dermatologic lesion in this location. IMPRESSION: 1. Findings are compatible with mild diverticulitis involving the descending and upper portions of the sigmoid colon. No abscess identified. 2. Postsurgical changes from prior renal transplant with removal of the right kidney and marked atrophy of the left kidney. 3. Skin thickening with subcutaneous nodule in the lower abdominal/pelvic wall at the level of the symphysis pubis off midline toward the right. Correlation for possible dermatologic lesion in this location suggested.
[2021-05-09] MEDS ORDERED: Ciprofloxacin 500 MG Tab PO ONE (10:46)
[2021-05-09] MEDS ORDERED: metroNIDAZOLE 250 MG Tab PO ONE (10:46)
== END 2021-05-09 11:14 | disposition home or self-care (01) ==
LOC: DL.ED 08:49
DX: K57.32 Diverticulitis of large intestine without perforation or abscess without bleeding (principal); I10 Essential (primary) hypertension; E66.9 Obesity, unspecified; Z68.30 Body mass index [BMI] 30.0-30.9, adult; Z79.82 Long term (current) use of aspirin; Z88.8 Allergy status to other drugs, medicaments and biological substances; Z91.011 Allergy to milk products; Z91.09 Other allergy status, other than to drugs and biological substances
CPT/HCPCS: 36415; 74176; 80053; 80143; 80179; 80305; 80307; 81001; 82140; 82150; 83690; 83735; 85025; 87040; 96374; 96376; 99285; A9270; J1170

== ENCOUNTER 2024-12-18 11:00 | Emergency (ER) | payer BC ==
[2024-12-18] MEDS ORDERED: Sodium Chloride 0.9% 10 ML Syringe FLUSH PRN (11:09)
[2024-12-18] MEDS: Ondansetron 4 MG/2 ML SDV IVPUSH ONE (11:16)
[2024-12-18] MEDS: HYDROmorphone 0.5 MG/0.5 ML Syringe IVPUSH ONE (11:16)
[2024-12-18] MEDS: Sodium Chloride 0.9% 1,000 ML IV ONE ×2 (11:16→12:05)
[2024-12-18 11:20] LABS: BASOPHILS PERCENT AUTO 0.2 % (0.0-1.0); EOSINOPHILS PERCENT AUTO 0.9 % (1.0-3.0); HEMATOCRIT 43.7 % (40.0-54.0); HEMOGLOBIN 14.3 g/dL (14.0-18.0); LYMPHOCYTES PERCENT AUTO 18.2 % (20.5-50.1); MEAN CORPUSCULAR HEMOGLOBIN 28.6 pg (27.0-34.0); MEAN CORPUSCULAR HGB CONC 32.7 g/dL (33.0-35.0); MEAN CORPUSCULAR VOLUME 87.4 fL (80-100); MONOCYTES PERCENT AUTO 6.8 % (2-8); NEUTROPHILS PERCENT AUTO 73.9 % (42.2-75.2); PLATELET COUNT,PLT 320 10^3/uL (150-450); WHITE BLOOD CELL COUNT,WBC 20.6 10^3/uL (5.0-10.0)
[2024-12-18 11:34] VITALS: BP 120/94; PULSE 61
[2024-12-18 11:37] LABS: A/G RATIO 0.8; ALANINE AMINOTRANSFERASE,ALT 31 U/L (16-63); ALBUMIN 3.8 g/dL (3.4-5.0); ALKALINE PHOSPHATASE 173 U/L (46-116); ANION GAP 18.3 mEq/L (7-13); ASPARTATE AMNIOTRANSFERASE,AST 17 U/L (15-37); BILIRUBIN TOTAL 0.4 mg/dL (0.2-1.0); BLOOD UREA NITROGEN,BUN 28 mg/dL (7-18); BUN/CREATININE RATIO 14.1 (No establ ref range); C-REACTIVE PROTEIN 0.71 ng/dL (<=0.50); CALCIUM 9.8 mg/dL (8.5-10.1); CARBON DIOXIDE,CO2 21 mmol/L (21-32); CHLORIDE,CL 107 mmol/L (98-107); CREATININE 1.98 mg/dL (0.70-1.30); ESTIMATED GFR 40 mL/min (>=60); GLUCOSE RANDOM 155 mg/dL (70-99); LIPASE 78 U/L (16-77); MAGNESIUM 2.1 mg/dL (1.8-2.4); POTASSIUM,K 4.3 mmol/L (3.5-5.1); PROTEIN TOTAL,TP 8.4 g/dL (6.4-8.2); SODIUM,NA 142 mmol/L (136-145)
[2024-12-18] MEDS: Iopamidol 612 MG/ML 100 ML Bottle IVPUSH ONE (11:41)
[2024-12-18] MEDS: Take Home: Ondansetron 4 MG Tab.DIS, 5 Tab Pack PO ONE ×2 (12:37)
[2024-12-18] MEDS: Acetaminophen 500 MG Tab PO ONE (12:38)
[2024-12-18 12:39] LABS: APPEARANCE,URINE CLEAR (CLEAR); BILIRUBIN,URINE NEGATIVE (NEGATIVE); COLOR,URINE YELLOW (YELLOW); GLUCOSE,URINE NEGATIVE (NEGATIVE); KETONES,URINE NEGATIVE (NEGATIVE); LEUKOCYTE ESTERASE,URINE NEGATIVE (NEGATIVE); NITRITE,URINE NEGATIVE (NEGATIVE); OCCULT BLOOD,URINE TRACE-INTACT (NEGATIVE); PROTEIN,URINE 100 (NEGATIVE); UROBILINOGEN,URINE 0.2 mg/dL (0.2-1.0)
[2024-12-18 12:46] LABS: AMORPHOUS SEDIMENT,URINE FEW /HPF (NOT SEEN); BACTERIA,URINE FEW /HPF (0-FEW/HPF); EPITHELIAL CELLS,URINE FEW /HPF (NOT SEEN); MUCUS,URINE FEW /LPF (NOT SEEN); WBC,URINE 0-5 /HPF (0-5/HPF)
== END 2024-12-18 12:53 | disposition home or self-care (01) ==
LOC: DL.ED 11:00
DX: K52.9 Noninfective gastroenteritis and colitis, unspecified (principal); Z91.011 Allergy to milk products; Z88.1 Allergy status to other antibiotic agents; Z88.8 Allergy status to other drugs, medicaments and biological substances; Z79.899 Other long term (current) drug therapy
CPT/HCPCS: 36415; 74177; 80053; 81001; 83690; 83735; 84484; 85025; 86140; 87040; 93010; 96361; 96374; 96375; 99284; A9270; J2405; J7030; Q0162; Q9967

== ENCOUNTER 2025-05-03 05:25 | Day surgery (SDC) | payer BC ==
[2025-05-03] MEDS ORDERED: Propofol 200 MG/20 ML SDV IV ONE (05:26)
[2025-05-03] MEDS ORDERED: Lactated Ringers 1,000 ML IV ONE (05:26)
[2025-05-03] MEDS ORDERED: Propofol 200 MG/20 ML SDV ONE ×2 (05:49→09:31)
[2025-05-03] MEDS: Lactated Ringers 1,000 ML IV SCH (06:09)
[2025-05-03 08:54] VITALS: BP 128/78; PULSE 50
== END 2025-05-03 08:10 | disposition home or self-care (01) ==
LOC: DL.ENDO 05:25
PROVIDERS: ATTEND Internal Medicine Gastroenterology
DX: Z12.11 Encounter for screening for malignant neoplasm of colon (principal); K51.40 Inflammatory polyps of colon without complications; K57.30 Diverticulosis of large intestine without perforation or abscess without bleeding; I12.9 Hypertensive chronic kidney disease with stage 1 through stage 4 chronic kidney disease, or unspecified chronic kidney disease; N18.30 Chronic kidney disease, stage 3 unspecified; F17.210 Nicotine dependence, cigarettes, uncomplicated; Z88.8 Allergy status to other drugs, medicaments and biological substances; K21.9 Gastro-esophageal reflux disease without esophagitis; E66.9 Obesity, unspecified; Z68.28 Body mass index [BMI] 28.0-28.9, adult; Z91.011 Allergy to milk products; Z79.82 Long term (current) use of aspirin; Z79.899 Other long term (current) drug therapy
CPT/HCPCS: 00811; 36415; 45385; 74177; 80053; 83605; 83735; 85025; 86140; 96374; 96375; 99284; J2405; J2704; J7030; J7120; Q9967; J1171

== ENCOUNTER 2025-05-03 13:18 | Emergency (ER) | payer BC ==
[2025-05-03] MEDS: Sodium Chloride 0.9% 10 ML Syringe FLUSH PRN (13:25)
[2025-05-03 13:35] LABS: BASOPHILS PERCENT AUTO 0.2 % (0.0-1.0); EOSINOPHILS PERCENT AUTO 0.8 % (1.0-3.0); LYMPHOCYTES PERCENT AUTO 15.2 % (20.5-50.1); MONOCYTES PERCENT AUTO 7.2 % (2-8); NEUTROPHILS PERCENT AUTO 76.6 % (42.2-75.2); PLATELET COUNT,PLT 290 10^3/uL (150-450); RED BLOOD CELL COUNT 4.52 10^6/uL (4.6-6.2); WHITE BLOOD CELL COUNT,WBC 19.7 10^3/uL (5.0-10.0)
[2025-05-03] MEDS: Ondansetron 4 MG/2 ML SDV IVPUSH ONE (13:42)
[2025-05-03 13:55] LABS: A/G RATIO 0.9; ALANINE AMINOTRANSFERASE,ALT 35.0 U/L (16-63); ASPARTATE AMNIOTRANSFERASE,AST 26.0 U/L (15-37); BILIRUBIN TOTAL 0.5 mg/dL (0.2-1.0); BLOOD UREA NITROGEN,BUN 21.0 mg/dL (7-18); CARBON DIOXIDE,CO2 23.0 mmol/L (21-32); CHLORIDE,CL 106.0 mmol/L (98-107); CREATININE 1.62 mg/dL (0.70-1.30); EST CRCL DRUG DOSING (CG) 59.21 mL/min; GLUCOSE RANDOM 137.0 mg/dL (70-99); POTASSIUM,K 4.3 mmol/L (3.5-5.1); PROTEIN TOTAL,TP 8.2 g/dL (6.4-8.2); SODIUM,NA 136.0 mmol/L (136-145)
[2025-05-03 13:56] LABS: ESTIMATED GFR 51.0 mL/min (>=60)
[2025-05-03 13:58] LABS: LACTIC ACID 1.9 mmol/L (0.4-2.0)
[2025-05-03] MEDS: Iopamidol 612 MG/ML 100 ML Bottle IVPUSH ONE (13:58)
[2025-05-03 15:54] VITALS: BP 114/70; PULSE 47
== END 2025-05-03 15:06 | disposition home or self-care (01) ==
LOC: DL.ED 13:18
DX: K57.32 Diverticulitis of large intestine without perforation or abscess without bleeding (principal); I10 Essential (primary) hypertension; K21.9 Gastro-esophageal reflux disease without esophagitis; E66.9 Obesity, unspecified; Z68.28 Body mass index [BMI] 28.0-28.9, adult; Z88.8 Allergy status to other drugs, medicaments and biological substances; Z91.011 Allergy to milk products; Z79.82 Long term (current) use of aspirin; Z79.899 Other long term (current) drug therapy
CPT/HCPCS: 36415; 74177; 80053; 83605; 83735; 85025; 86140; 96374; 96375; 99284; J2405; J7030; Q9967; J1171

== ENCOUNTER 2025-05-05 08:32 | Inpatient (IN) | payer BC ==
[2025-05-05 09:21] LABS: BASOPHILS PERCENT AUTO 0.2 % (0.0-1.0); EOSINOPHILS PERCENT AUTO 1.0 % (1.0-3.0); LYMPHOCYTES PERCENT AUTO 10.6 % (20.5-50.1); MONOCYTES PERCENT AUTO 9.0 % (2-8); NEUTROPHILS PERCENT AUTO 79.2 % (42.2-75.2); PLATELET COUNT,PLT 267 10^3/uL (150-450); RED BLOOD CELL COUNT 4.37 10^6/uL (4.6-6.2); WHITE BLOOD CELL COUNT,WBC 21.0 10^3/uL (5.0-10.0)
[2025-05-05] MEDS: Ondansetron 4 MG/2 ML SDV IVPUSH ONE (09:22)
[2025-05-05] MEDS: Lactated Ringers 1,000 ML IV ONE (09:22)
[2025-05-05 09:37] LABS: A/G RATIO 0.8; ALANINE AMINOTRANSFERASE,ALT 33 U/L (16-63); ASPARTATE AMNIOTRANSFERASE,AST 18 U/L (15-37); BILIRUBIN TOTAL 0.7 mg/dL (0.2-1.0); BLOOD UREA NITROGEN,BUN 20 mg/dL (7-18); CARBON DIOXIDE,CO2 24 mmol/L (21-32); CHLORIDE,CL 102 mmol/L (98-107); CREATININE 1.82 mg/dL (0.70-1.30); GLUCOSE RANDOM 118 mg/dL (70-99); POTASSIUM,K 4.0 mmol/L (3.5-5.1); PROTEIN TOTAL,TP 8.1 g/dL (6.4-8.2); SODIUM,NA 138 mmol/L (136-145)
[2025-05-05 09:40] LABS: ESTIMATED GFR 44 mL/min (>=60)
[2025-05-05] MEDS: Ciprofloxacin in D5W 400 MG in Premix Bag 1 BAG IV ONE (10:10)
[2025-05-05] MEDS: metroNIDAZOLE/Normal Saline 500 MG in Premix Bag 1 BAG IV ONE (10:19)
[2025-05-05] MEDS: Iopamidol 612 MG/ML 100 ML Bottle IVPUSH ONE (10:35)
[2025-05-05] MEDS: diphenhydrAMINE 50 MG/ML SDV IVPUSH ONE (11:37)
[2025-05-05] MEDS: Dexamethasone 4 MG/ML SDV IVPUSH ONE (11:37)
[2025-05-05] MEDS ORDERED: Ondansetron 4 MG/2 ML SDV IVPUSH PRN (15:27)
[2025-05-05] MEDS: MYCOPHENOLATE MOFETIL 250 MG PO SCH ×2 (15:58→22:00)
[2025-05-05] MEDS: Ciprofloxacin in D5W 200 MG in Premix Bag 1 BAG IV SCH (15:59)
[2025-05-05] MEDS: TACROLIMUS 1 MG PO SCH (22:00)
[2025-05-05] MEDS: TACROLIMUS 0.5 MG PO SCH (22:00)
[2025-05-05] MEDS: KPHOS NEUTRAL PO SCH (22:00)
[2025-05-05] MEDS: ROSUVASTATIN 5 MG PO SCH (22:00)
[2025-05-05] MEDS: METOPROLOL TARTRATE 100 MG PO SCH (22:00)
[2025-05-05] MEDS: SODIUM BICARBONATE 650 MG PO SCH (22:00)
[2025-05-05] MEDS: Heparin Sodium 5,000 Units/ML Vial SUBCUT SCH (22:13)
[2025-05-06] MEDS ORDERED: PREDNISONE 5 MG PO SCH (06:00)
[2025-05-06 06:42] LABS: BASOPHILS PERCENT AUTO 0.1 % (0.0-1.0); EOSINOPHILS PERCENT AUTO 0.1 % (1.0-3.0); LYMPHOCYTES PERCENT AUTO 11.9 % (20.5-50.1); MONOCYTES PERCENT AUTO 7.6 % (2-8); NEUTROPHILS PERCENT AUTO 80.3 % (42.2-75.2); PLATELET COUNT,PLT 223 10^3/uL (150-450); RED BLOOD CELL COUNT 3.51 10^6/uL (4.6-6.2); WHITE BLOOD CELL COUNT,WBC 16.8 10^3/uL (5.0-10.0)
[2025-05-06 07:08] LABS: BLOOD UREA NITROGEN,BUN 17.0 mg/dL (7-18); CARBON DIOXIDE,CO2 23.0 mmol/L (21-32); CHLORIDE,CL 107.0 mmol/L (98-107); CREATININE 1.54 mg/dL (0.70-1.30); EST CRCL DRUG DOSING (CG) 62.29 mL/min; GLUCOSE RANDOM 116.0 mg/dL (70-99); POTASSIUM,K 4.2 mmol/L (3.5-5.1); SODIUM,NA 138.0 mmol/L (136-145)
[2025-05-06 07:10] LABS: ESTIMATED GFR 54.0 mL/min (>=60)
[2025-05-06] MEDS ORDERED: Ciprofloxacin in D5W 400 MG in Premix Bag 1 BAG IV SCH ×2 (09:15→15:00)
[2025-05-06] MEDS: metroNIDAZOLE/Normal Saline 500 MG in Premix Bag 1 BAG IV SCH (09:37)
[2025-05-06] MEDS: ALLOPURINOL 100 MG PO SCH (09:42)
[2025-05-06] MEDS: Aspirin 81 MG Tab.EC #OWN MED# PO SCH (09:43)
[2025-05-06] MEDS: PREDNISONE 5 MG PO SCH (09:44)
[2025-05-06] MEDS: ISOSORBIDE MONONITRATE 30 MG PO SCH (09:46)
[2025-05-06] MEDS: LISINOPRIL 5 MG PO SCH (09:47)
[2025-05-06] MEDS: Cholecalciferol (Vitamin D3) 25 MCG Tab PO SCH (10:49)
[2025-05-06] MEDS: Calcium Carbonate/Vitamin D3 1250 MG-5 MCG Tab PO SCH (10:49)
[2025-05-06 11:47] VITALS: BP 128/77; PULSE 54
[2025-05-06] MEDS ORDERED: MAG OXIDE PO SCH (21:00)
[2025-05-06] MEDS ORDERED: ROSUVASTATIN 5 MG PO SCH (21:00)
[2025-05-06] MEDS ORDERED: CITRACAL PO SCH (21:00)
[2025-05-07] MEDS ORDERED: ISOSORBIDE MONONITRATE PO SCH (09:00)
[2025-05-07] MEDS ORDERED: AMLODIPINE PO SCH (09:00)
[2025-05-07] MEDS ORDERED: PREDNISONE PO SCH (09:00)
[2025-05-07] MEDS ORDERED: MULTIVITAMIN PO SCH (09:00)
[2025-05-07] MEDS ORDERED: D3 PO SCH (09:00)
== END 2025-05-06 14:00 | disposition home or self-care (01) | DRG 244 ==
LOC: DL.ED 08:32 → DL.MS 14:41
PROVIDERS: ADMIT Internal Medicine; ATTEND Internal Medicine
DX: K57.32 Diverticulitis of large intestine without perforation or abscess without bleeding (principal); N17.9 Acute kidney failure, unspecified; H54.7 Unspecified visual loss; I10 Essential (primary) hypertension; K21.9 Gastro-esophageal reflux disease without esophagitis; G89.29 Other chronic pain; M54.9 Dorsalgia, unspecified; E66.9 Obesity, unspecified; T86.19 Other complication of kidney transplant; E87.20 Acidosis, unspecified; E86.0 Dehydration; M85.80 Other specified disorders of bone density and structure, unspecified site; Z68.29 Body mass index [BMI] 29.0-29.9, adult; Z85.528 Personal history of other malignant neoplasm of kidney; Z85.51 Personal history of malignant neoplasm of bladder; Z94.0 Kidney transplant status; Z91.011 Allergy to milk products; Z88.8 Allergy status to other drugs, medicaments and biological substances; Z79.899 Other long term (current) drug therapy; Z79.82 Long term (current) use of aspirin; Z90.5 Acquired absence of kidney
CPT/HCPCS: 36415; 74177; 80048; 80053; 83690; 85025; 86140; 96361; 96365; 96368; 96375; 96376; 99223; 99239; 99285-25; A9270-GY; J0744; J1100; J1171; J1200; J1644; J1836; J2270; J2405; J7030; J7120; J7512; Q9967

== ENCOUNTER 2025-05-23 23:01 | Emergency (ER) | payer BC ==
[2025-05-23 23:20] VITALS: BP 132/78; PULSE 57
[2025-05-23] MEDS ORDERED: Sodium Chloride 0.9% 10 ML Syringe FLUSH PRN (23:27)
[2025-05-23 23:36] LABS: BASOPHILS PERCENT AUTO 0.4 % (0.0-1.0); EOSINOPHILS PERCENT AUTO 3.0 % (1.0-3.0); LYMPHOCYTES PERCENT AUTO 28.4 % (20.5-50.1); MONOCYTES PERCENT AUTO 10.2 % (2-8); NEUTROPHILS PERCENT AUTO 58.0 % (42.2-75.2); PLATELET COUNT,PLT 381 10^3/uL (150-450); RED BLOOD CELL COUNT 3.78 10^6/uL (4.6-6.2); WHITE BLOOD CELL COUNT,WBC 13.2 10^3/uL (5.0-10.0)
[2025-05-23 23:54] LABS: A/G RATIO 0.66; ALANINE AMINOTRANSFERASE,ALT 27.0 U/L (16-63); ASPARTATE AMNIOTRANSFERASE,AST 13.0 U/L (15-37); BILIRUBIN TOTAL 0.1 mg/dL (0.2-1.0); BLOOD UREA NITROGEN,BUN 30.0 mg/dL (7-18); CARBON DIOXIDE,CO2 25.0 mmol/L (21-32); CHLORIDE,CL 102.0 mmol/L (98-107); CREATININE 1.75 mg/dL (0.70-1.30); EST CRCL DRUG DOSING (CG) 54.81 mL/min; ESTIMATED GFR 47.0 mL/min (>=60); GLUCOSE RANDOM 126.0 mg/dL (70-99); POTASSIUM,K 3.7 mmol/L (3.5-5.1); PROTEIN TOTAL,TP 7.3 g/dL (6.4-8.2); SODIUM,NA 136.0 mmol/L (136-145)
[2025-05-23 23:57] LABS: LACTIC ACID 0.7 mmol/L (0.4-2.0)
== END 2025-05-24 02:20 | disposition home or self-care (01) ==
LOC: DL.ED 23:01
DX: L03.112 Cellulitis of left axilla (principal); L02.422 Furuncle of left axilla; L03.114 Cellulitis of left upper limb; I10 Essential (primary) hypertension; K21.9 Gastro-esophageal reflux disease without esophagitis; F17.210 Nicotine dependence, cigarettes, uncomplicated; Z91.011 Allergy to milk products; Z88.8 Allergy status to other drugs, medicaments and biological substances; Z79.82 Long term (current) use of aspirin; Z79.899 Other long term (current) drug therapy
CPT/HCPCS: 36415; 80053; 83605; 83735; 85025; 87040; 96365; 96366; 99283; 99284; J3373; J7040